=== PATIENT | male | born 1940 | race Caucasian/White ===

== ENCOUNTER 2017-12-17 04:24 | Inpatient (IN) | payer MEDICARE ==
[~2017-12-17] VITALS: Ht 182.9 cm; Wt 93.5 kg
[2017-12-17] VITALS (13 sets, daily range): BP systolic 115–145; BP diastolic 53–105; PULSE 68–92; RESP 16–28; TEMP 97.8–98.6; O2SAT 94–98
--- NOTE | 2017-12-17 05:34 | PD ---
HPI Chief Complaint: Altered Mental Status Time Seen by Provider: 05:13 Travel History International Travel<30 days: No Contact w/Intl Traveler<30days: No Traveled to known affect area: No History of Present Illness HPI The patient is a 77 year old male who presents to the [facility] emergency department with a history of reportedly having a headache in the back of his head and neck that began on Sunday. The patient reports that this was associated with left shoulder pain. 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 He reports that he went to the emergency department in [place] and was admitted to the hospital. He reports that on Sunday he underwent a cardiac catheterization and no stents needed to be placed. The patient developed confusion in the hospital and was admitted overnight. They thought that this was related to sedation from the cardiac catheterization procedure according to his daughter at the bedside. He reports that he does take an aspirin daily. He denies taking any other blood thinners. He reports having a history of an irregular heartbeat, however he is unsure whether this is related to atrial fibrillation. He reports that his headache is now 10 out of 10 in severity he reports that he is having difficulty finding words. He reports that he feels confused. He is having difficulty finding words. He reports that the symptoms began on Sunday. He denies having any focal weakness. He denies having any vision changes. The patient reports a history of hypertension, hyperlipidemia, diabetes mellitus, coronary artery disease. He denies having any known recent fevers, cough or congestion, shortness of breath, abdominal pain, vomiting, diarrhea, urinary symptoms, or other neurologic symptoms. [facility] Past Medical History Narrative Medical The patient's past medical history is significant for hypertension, hyperlipidemia, diabetes mellitus, history of an irregular heartbeat, coronary artery disease. Medical History: Unable to Obtain Cardiovascular Problems: Yes Past Surgical History Narrative Surgical The patient's past surgical history is significant for quadruple bypass, left knee replacement Social History Alcohol Use: Yes (OCC) Tobacco Use: No Substance Use: No Allergies-Medications (Allergen,Severity, Reaction): Coded Allergies: No Known Allergies (Unverified , 12/17/17) Reported Meds & Prescriptions Reported Meds & Active Scripts Active Reported Norvasc (Amlodipine Besylate) 5 Mg Tab 5 Mg PO DAILY Carvedilol 3.125 Mg Tab 3.125 Mg PO BID Aspirin 81 Mg Chew 81 Mg PO DAILY Crestor (Rosuvastatin Calcium) 40 Mg Tab 40 Mg PO DAILY Pantoprazole (Pantoprazole Sodium) 40 Mg Tab 40 Mg PO DAILY Lisinopril 40 Mg Tab 40 Mg PO DAILY Metformin (Metformin HCl) 500 Mg Tab 500 Mg PO BIDPC Review of Systems Except as stated in HPI: all other systems reviewed are Neg General / Constitutional: No: Fever Eyes: No: Visual changes HENT: Positive: Headaches, Neck Pain, No: Neck Stiffness Cardiovascular: No: Chest Pain or Discomfort, Dyspnea on exertion Respiratory: No: Shortness of Breath Gastrointestinal: No: Nausea, Vomiting, Abdominal Pain Genitourinary: No: Dysuria Musculoskeletal: No: Pain Skin: No Rash Neurologic: Positive: Headache, Change in Mentation, No: Weakness, Focal Abnormalities, Slurred Speech, Sensory Disturbance Psychiatric: No: Depression Endocrine: No: Polydipsia Hematologic/Lymphatic: No: Easy Bruising Physical Exam Narrative General: The patient is a well-developed well-nourished male, uncomfortable appearing on examination reporting a headache all throughout his head with posterior neck pain. Head and Neck exam: Head is normocephalic atraumatic. Eyes: EOMI, pupils are equal round and reactive to light. Nose: Midline septum with pink mucous membranes Mouth: Dentition unremarkable. Moist mucus membranes. Posterior oropharynx is not erythematous. No tonsillar hypertrophy. Uvula midline. Airway patent. Neck: No palpable lymphadenopathy. No nuchal rigidity. No thyromegaly. Cardiovascular: Irregularly irregular with a rate in the 140s without murmurs, gallops, or rubs. The patient is noted to be in atrial fibrillation on the monitor. Lungs: Clear to auscultation bilaterally. No wheezes, rhonchi, or rales. Abdomen: Soft, without tenderness to palpation in all 4 quadrants of the abdomen. No guarding, rebound, or rigidity. Normal bowel sounds are audible. No tenderness on palpation of McBurney's point. Extremities: No clubbing, cyanosis, or edema. 2+ pulses in all 4 extremities. No calf tenderness on palpation. Back: No spinous process tenderness to palpation. No costovertebral angle tenderness to palpation. Neurologic Exam: The patient has no facial asymmetry with cranial nerves II through XII intact. The patient has a mild expressive aphasia noted. The patient has 4/5 strength in the left upper extremity, 5/5 strength in the right upper and bilateral lower extremities with intact sensation over all dermatomes. The patient is slow to answer questions, however he is able to answer questions with time. The patient has no slurred speech. Skin Exam: No rash noted. Intact skin that is warm and dry. Data Data Last Documented VS Vital Signs Date Time Temp Pulse Resp B/P (MAP) Pulse Ox O2 Delivery O2 Flow Rate FiO2 12/17/17 07:30 97.8 78 16 126/78 (94) 97 Nasal Cannula 3.00 Orders Orders Electrocardiogram (12/17/17 05:15) Complete Blood Count With Diff (12/17/17 05:15) Comprehensive Metabolic Panel (12/17/17 05:15) Creatine Kinase (Cpk) (12/17/17 05:15) Ckmb (Isoenzyme) Profile (12/17/17 05:15) Troponin I (12/17/17 05:15) B-Type Natriuretic Peptide (12/17/17 05:15) Prothrombin Time / Inr (Pt) (12/17/17 05:15) Act Partial Throm Time (Ptt) (12/17/17 05:15) Lipase (12/17/17 05:15) Urinalysis - C+S If Indicated (12/17/17 05:15) Cath For Specimen (12/17/17 05:15) Magnesium (Mg) (12/17/17 05:15) Ammonia (12/17/17 05:15) Chest, Single Ap (12/17/17 05:15) Ct Brain W/O Iv Contrast(Rout) (12/17/17 05:15) Iv Access Insert/Monitor (12/17/17 05:15) Ecg Monitoring (12/17/17 05:15) Oximetry (12/17/17 05:15) Drug Screen, Random Urine (12/17/17 05:15) Alcohol (Ethanol) (12/17/17 05:15) Diltiazem Inj (Cardizem Inj) (12/17/17 05:45) Blood Pressure (12/17/17 05:38) Diltiazem Inj (Cardizem Inj) (12/17/17 05:45) Sodium Chloride 0.9% Flush (Ns Flush) (12/17/17 05:45) CKMB (12/17/17 05:55) CKMB% (12/17/17 05:55) Mra Carotids W Contrast (12/17/17 ) Fentanyl Inj (Fentanyl Inj) (12/17/17 06:45) Diltiazem Inj (Cardizem Inj) (12/17/17 06:45) [place] (12/17/17 06:40) Ondansetron Inj (Zofran Inj) (12/17/17 06:45) Aspirin (Aspirin) (12/17/17 06:45) Sodium Chlor 0.9% 1000 Ml Inj (Ns 1000 M (12/17/17 06:45) Mri Brain W&W/O Contrast (12/17/17 06:42) Fentanyl Inj (Fentanyl Inj) (12/17/17 06:49) Mra Brain W/O Contrast (Cow) (12/17/17 06:33) Echo 2d Comp With Doppler (12/17/17 ) Consult Cardiology (12/17/17 ) Carvedilol (Coreg) (12/17/17 09:00) Atorvastatin (Lipitor) (12/17/17 21:00) Aspirin Chew (Aspirin Chew) (12/17/17 09:00) Admit Order (Ed Use Only) (12/17/17 07:31) Consult Neurology (12/17/17 ) Labs Laboratory Tests Test 12/17/17 05:55 White Blood Count 9.0 TH/MM3 Red Blood Count 4.21 MIL/MM3 Hemoglobin 13.4 GM/DL Hematocrit 38.7 % Mean Corpuscular Volume 92.0 FL Mean Corpuscular Hemoglobin 31.8 PG Mean Corpuscular Hemoglobin Concent 34.6 % Red Cell Distribution Width 12.7 % Platelet Count 176 TH/MM3 Mean Platelet Volume 8.8 FL Neutrophils (%) (Auto) 74.6 % Lymphocytes (%) (Auto) 15.7 % Monocytes (%) (Auto) 9.1 % Eosinophils (%) (Auto) 0.5 % Basophils (%) (Auto) 0.1 % Neutrophils # (Auto) 6.7 TH/MM3 Lymphocytes # (Auto) 1.4 TH/MM3 Monocytes # (Auto) 0.8 TH/MM3 Eosinophils # (Auto) 0.0 TH/MM3 Basophils # (Auto) 0.0 TH/MM3 CBC Comment DIFF FINAL Differential Comment Prothrombin Time 10.7 SEC Prothromb Time International Ratio 1.1 RATIO Activated Partial Thromboplast Time 25.0 SEC Urine Color YELLOW Urine Turbidity CLEAR Urine pH 7.0 Urine Specific [place] 1.018 Urine Protein 100 mg/dL Urine Glucose (UA) NEG mg/dL Urine Ketones 40 mg/dL Urine Occult Blood TRACE Urine Nitrite NEG Urine Bilirubin NEG Urine Urobilinogen LESS THAN 2.0 MG/DL Urine Leukocyte Esterase NEG Urine WBC 1 /hpf Urine Mucus FEW /lpf Microscopic Urinalysis Comment CULT NOT INDICATED Blood Urea Nitrogen 13 MG/DL Creatinine 1.08 MG/DL Random Glucose 132 MG/DL Total Protein 7.2 GM/DL Albumin 3.7 GM/DL Calcium Level 8.6 MG/DL Magnesium Level 1.8 MG/DL Alkaline Phosphatase 43 U/L Aspartate Amino Transf (AST/SGOT) 38 U/L Alanine Aminotransferase (ALT/SGPT) 28 U/L Total Bilirubin 0.8 MG/DL Sodium Level 135 MEQ/L Potassium Level 3.6 MEQ/L Chloride Level 101 MEQ/L Carbon Dioxide Level 24.9 MEQ/L Anion Gap 9 MEQ/L Estimat Glomerular Filtration Rate 67 ML/MIN Ammonia 28 MCMOL/L Total Creatine Kinase 180 U/L Creatine Kinase MB 6.4 NG/ML Troponin I 5.62 NG/ML B-Type Natriuretic Peptide 116 PG/ML Lipase 85 U/L Urine Opiates Screen NEG Urine Barbiturates Screen NEG Urine Amphetamines Screen NEG Urine Benzodiazepines Screen POS Urine Cocaine Screen NEG Urine Cannabinoids Screen NEG Ethyl Alcohol Level LESS THAN 3 MG/DL MDM Medical Decision Making Medical Screen Exam Complete: Yes Emergency Medical Condition: Yes Medical Record Reviewed: Yes Interpretation(s) Last Impressions Brain MRI 12/17/17 0642 Signed Impressions: Service Date/Time: Sunday, December 17, 2017 09:23 - CONCLUSION: 1. The abnormality on CT corresponds to a large area of acute to subacute infarction. 2. No evidence of underlying mass or hemorrhage. Guanakito Thomas MD Head Magnetic Resonance Angiography 12/17/17 0633 Signed Impressions: Service Date/Time: Sunday, December 17, 2017 09:23 - CONCLUSION: Occluded branches of left SCIENTIFIC TECHNICAL WRITER. Hypoplastic left A1. Mario Robertson MD Head CT 12/17/17 0515 Signed Impressions: Service Date/Time: Sunday, December 17, 2017 05:35 - CONCLUSION: 1. Prominent area of low density throughout the left posterior temporal/occipital lobe concerning for infarct versus underlying mass/edema. Contrast MRI recommended. 2. Nonspecific white matter changes. All Bueno MD Chest X-Ray 12/17/1715 Signed Impressions: Service Date/Time: Sunday, December 17, 2017 05:26 - CONCLUSION: 1. Elevation left hemidiaphragm. 2. Status post CABG. All Bueno MD Neck Magnetic Resonance Angiography 12/17/17 0000 Signed Impressions: Service Date/Time: Sunday, December 17, 2017 09:23 - CONCLUSION: No evidence of carotid stenosis Mario Robertson MD Differential Diagnosis Ischemic stroke, versus intracranial mass, versus delirium, versus encephalopathy Narrative Course During the course of the patient's emergency department visit, the patient's history, examination, and differential diagnosis were reviewed with the patient. The patient was placed on a painter and body work with oximetry and frequent blood pressure monitoring. The patient had IV access obtained and blood work sent for analysis. The patient's records from [place] will be obtained. The patient had a EKG done on arrival that shows A. fib with RVR heart rate of 140, QRS duration 104 ms, QTC [address] segments in leads V2, V3, V4, V5. No acute ST segment elevation. The patient was initially provided Cardizem 20 mg IV followed by Cardizem drip. The patient was given fentanyl for his headache, Zofran for nausea. A CT scan of the brain showed prominent area of low density throughout the left posterior temporal occipital lobe concerning for infarct versus underlying mass/ edema, contrast MRI is recommended. Nonspecific white matter changes are noted.The patient's case including history, pertinent physical examination findings, and laboratory studies were discussed with Dr. Cuevas at approximately 6:30 AM regarding the patient's CT scan findings. He did recommend the patient undergo an MR a of the carotids with and without contrast, MRA of the [place] of the brain, MRI of the brain with and without contrast. He reported that he did not recommend anticoagulation at this point due to the large area of ischemia and the risk for hemorrhagic conversion. The patient was given aspirin 325 mg p.o. 1. The patient was placed with the head of the bed flat, normal saline at 70 mL/h was ordered The patient's laboratory studies were reviewed and remarkable for a white count of 9.0, hemoglobin 13.4, platelets 176 with 74.6 neutrophils. CMP is remarkable for a sodium of 135, glucose 132, AST 38, alk phos 43, CPK 180, troponin I 5.62, BNP 116, lipase 85. PT PTT within normal limits. Urine drug screen is positive for benzodiazepines, alcohol level is less than 3. Urinalysis shows 100 protein 40 ketones trace occult blood, otherwise unremarkable. Radiology studies were reviewed and remarkable for a CT scan of the brain that showed a prominent area of low density throughout the left posterior temporal occipital lobes concerning for infarct versus underlying mass/edema. The patient is out of the timeframe for consideration of thrombolytics. I did speak to the neurologist as discussed above. Also spoke with the intensive care physician who did agree to admit the patient for continued evaluation and treatment at this time. The patient's results were discussed with the patient, including the plan of care. I explained that further testing and/ or monitoring is indicated based on the patient's history, examination, and/ or laboratory findings. Therefore, I recommended admission for additional evaluation. The patient expressed understanding and was agreeable with this plan. The patient was admitted to the hospital in critical condition and sent to a bed under the care of the cinder pitman service. Critical Care Narrative Aggregate critical care time was 41 minutes. Time to perform other separately billable procedures was not included in the critical care time. My time did not include minutes spent treating any other patients simultaneously or on activities that did not directly contribute to the patient's treatment. The services I provided to this patient were to treat and/or prevent clinically significant deterioration that could result in: Progression of neurologic deficit, versus respiratory failure from cerebral edema I provided critical care services requiring my management, as noted below: Chart data review, documentation time, medication orders and management, vital sign assessments/reviewing monitor data, ordering and reviewing lab tests, ordering and interpreting/reviewing x-rays and diagnostic studies, care of the patient and discussion of the patient with the admitting physicians. Physician Communication Physician Communication The patient's case including history, pertinent physical examination findings, and laboratory studies were discussed with Dr. Cuevas at approximately 6:30 AM regarding the patient's CT scan findings. He did recommend the patient undergo an MR a of the carotids with and without contrast, MRA of the [place] of the brain, MRI of the brain without contrast. He reported that he did not recommend anticoagulation at this point due to the large area of ischemia and the risk for hemorrhagic conversion. The patient's case including history, pertinent physical examination findings, and laboratory studies were discussed with Dr. Martin. It was agreed that the patient would be admitted to the the cinder pitman service. Diagnosis Primary Impression: Ischemic stroke Additional Impressions: Expressive aphasia Atrial fibrillation with RVR Elevated troponin Admitting Information Admitting Physician Requests: Admit Rose Mary Robb MD Dec 17, 2017 05:34
--- NOTE | 2017-12-17 05:42 | RADRPT ---
EXAM DATE/TIME: 12/17/2017 05:26 [facility] COMPARISON: No previous studies available for comparison. INDICATIONS : Altered mental status for three days. MEDICAL HISTORY : None. SURGICAL HISTORY : None. ENCOUNTER: Initial ACUITY: 3 days PAIN SCORE: 0/10 LOCATION: Bilateral chest FINDINGS: A single view of the chest demonstrates clear lungs without evidence of mass, infiltrate or effusion. Elevation left hemidiaphragm. Status post CABG. The cardiomediastinal contours are unremarkable. Os seous structures are intact. CONCLUSION: 1. Elevation left hemidiaphragm. 2. Status post CABG. All Bueno MD on December 17, 2017 at 5:40 Board Certified Radiologist. This report was verified electronically.
[2017-12-17] MEDS ORDERED: SODIUM CHLORIDE 0.9% FLUSH 10 ML FLUSH IV FLUSH PRN ×2 (05:45→16:00)
[2017-12-17] MEDS ORDERED: DILTIAZEM HCL 25 MG/5 ML VIAL IV ONE (05:45)
--- NOTE | 2017-12-17 06:09 | RADRPT ---
EXAM DATE/TIME: 12/17/2017 05:35 [facility] COMPARISON: No previous studies available for comparison. INDICATIONS : Headache X 3 days; altered mental status today. RADIATION DOSE: 56.35 CTDIvol (mGy) MEDICAL HISTORY : Cardiovascular disease. SURGICAL HISTORY : None. ENCOUNTER: Initial ACUITY: 3 days PAIN SCALE: 10/10 LOCATION: cranial TECHNIQUE: Multiple contiguous axial images were obtained of the head. Using automated exposure control and adj ustment of the mA and/or kV according to patient size, radiation dose was kept as low as reasonably a chievable to obtain optimal diagnostic quality images. DICOM format image data is available electro nically for review and comparison. FINDINGS: CEREBRUM: Prominent area of low attenuation in the left occipital/temporal lobe. Areas of low-attenuation throu ghout the white matter. The ventricles are normal for age. No evidence of midline shift, mass lesion , hemorrhage or acute infarction. No extra-axial fluid collections are seen. POSTERIOR FOSSA: The cerebellum and brainstem are intact. The 4th ventricle is midline. The cerebellopontine angle i s unremarkable. EXTRACRANIAL: The visualized portion of the orbits is intact. SKULL: The calvaria is intact. No evidence of skull fracture. CONCLUSION: 1. Prominent area of low density throughout the left posterior temporal/occipital lobe concerning for infarct versus underlying mass/edema. Contrast MRI recommended. 2. Nonspecific white matter changes. All Bueno MD on December 17, 2017 at 6:04 Board Certified Radiologist. This report was verified electronically.
[2017-12-17 06:13] LABS: BILIRUBIN, URINE NEG (NEG); BLOOD, URINE TRACE (NEG); GLUCOSE,URINE NEG (NEG); KETONE, URINE 40 mg/dL (NEG); MUCUS URINE FEW /lpf (OCC); NITRITE,URINE NEG (NEG); URINE COLOR YELLOW (YELLW/STRAW); URINE LEUKOCYTE ESTERASE NEG (NEG)
[2017-12-17 06:19] LABS: INTERNATIONAL NORMALIZED RATIO 1.1 RATIO; PROTHROMBIN TIME - PATIENT 10.7 SEC (9.8-11.6)
[2017-12-17 06:28] LABS: ALBUMIN 3.7 GM/DL (3.4-5.0); ALT (GPT) 28 U/L (12-78); AST (GOT) 38 U/L (15-37); BICARBONATE 24.9 MEQ/L (21.0-32.0); BLOOD UREA NITROGEN 13 MG/DL (7-18); CALCIUM 8.6 MG/DL (8.5-10.1); CHLORIDE 101 MEQ/L (98-107); CREATININE 1.08 MG/DL (0.60-1.30); GLOMERULAR FILTRATION RATE 67 ML/MIN (>89); GLUCOSE,RANDOM 132 MG/DL (74-106); MAGNESIUM 1.8 MG/DL (1.5-2.5); SODIUM (NA) 135 MEQ/L (136-145)
[2017-12-17 06:31] LABS: ALKALINE PHOSPHATASE 43 U/L (45-117); TOTAL BILIRUBIN ADULT 0.8 MG/DL (0.2-1.0); TOTAL PROTEIN 7.2 GM/DL (6.4-8.2)
[2017-12-17 06:34] LABS: TROPONIN I 5.62 NG/ML (0.02-0.05)
[2017-12-17 06:42] LABS: AUTOMATED NEUTROPHIL # 6.7 TH/MM3 (1.8-7.7); BASOPHIL % 0.1 % (0.0-2.0); EOSINOPHIL % 0.5 % (0.0-4.0); HEMATOCRIT 38.7 % (39.0-51.0); HEMOGLOBIN 13.4 GM/DL (13.0-17.0); LYMPH % 15.7 % (9.0-44.0); LYMPHOCYTE # 1.4 TH/MM3 (1.0-4.8); MEAN CORPUSCULAR HEMOGLOBIN 31.8 PG (27.0-34.0); MEAN CORPUSCULAR HGB CONC 34.6 % (32.0-36.0); MEAN PLATELET VOLUME 8.8 FL (7.0-11.0); MONO % 9.1 % (0.0-8.0); MONOCYTE # 0.8 TH/MM3 (0-0.9); NEUT % 74.6 % (16.0-70.0); PLATELET COUNT 176 TH/MM3 (150-450); RED BLOOD COUNT 4.21 MIL/MM3 (4.50-5.90); RED CELL DISTRIBUTION WIDTH 12.7 % (11.6-17.2)
[2017-12-17] MEDS ORDERED: fentaNYL CITRATE 250 MCG/5 ML AMP IV PUSH ONE (06:45)
[2017-12-17] MEDS ORDERED: ASPIRIN 325 MG TAB PO ONE (06:45)
[2017-12-17] MEDS ORDERED: DILTIAZEM HCL 50 MG/10 ML VIAL IV ONE (06:45)
[2017-12-17] MEDS ORDERED: SODIUM CHLOR 0.9% 1000 ML INJ 1,000 ML IV SCH ×2 (06:45→07:24)
[2017-12-17] MEDS ORDERED: ONDANSETRON HCL 4 MG/2 ML VIAL IV PUSH ONE (06:45)
[2017-12-17] MEDS ORDERED: fentaNYL CITRATE 250 MCG/5 ML AMP ONE (06:49)
[2017-12-17] MEDS: DILTIAZEM INJ 125 MG in SODIUM CHLORIDE 0.9% INJ 100 ML IV PRN ×2 (06:55→20:41)
[2017-12-17] MEDS ORDERED: BISACODYL 10 MG SUPP RECTAL PRN (07:30)
[2017-12-17] MEDS ORDERED: SENNOSIDES 8.6 MG TAB PO PRN (07:30)
[2017-12-17] MEDS ORDERED: RESP: ALBUTEROL 2.5 MG/IPRATROPIUM 0.5 MG NEB (PRN) INH (07:30)
[2017-12-17] MEDS ORDERED: LACTULOSE SYRUP 20 GM/30 ML CUP PO PRN (07:30)
[2017-12-17] MEDS ORDERED: MAGNESIUM HYDROXIDE SUSP 30 ML CUP PO PRN ×2 (07:30→19:45)
[2017-12-17] MEDS ORDERED: CHLORHEXIDINE GLUCONATE 2 % 1 PACK (2 CLOTHS) TOP PRN (07:30)
[2017-12-17] MEDS ORDERED: MISCELLANEOUS NURSING INFORMATION XX SCH (07:30)
[2017-12-17] MEDS ORDERED: POTASSIUM CHLORIDE 25 MEQ EFFERVESCENT TAB PO PRN (07:45)
[2017-12-17] MEDS ORDERED: MAGNESIUM SULFATE INJ 4 GM in SODIUM CHLORIDE 0.9% INJ 92 ML IV PRN (07:45)
[2017-12-17] MEDS ORDERED: POTASSIUM CHLOR 20 MEQ PREMIX 100 ML IV PRN ×2 (07:45)
[2017-12-17] MEDS ORDERED: MAGNESIUM OXIDE 400 MG TAB PO PRN (07:45)
[2017-12-17] MEDS ORDERED: POTASSIUM PHOSPHATE MONOBASIC 500 MG TAB PO PRN (07:45)
[2017-12-17] MEDS ORDERED: MAGNESIUM SULFATE INJ 2 GM in SODIUM CHLORIDE 0.9% INJ 96 ML IV PRN (07:45)
[2017-12-17] MEDS ORDERED: POTASSIUM CHLOR 40 MEQ PREMIX 100 ML IV PRN ×2 (07:45)
[2017-12-17] MEDS ORDERED: POTASSIUM PHOSPHATE INJ 30 MMOL in SODIUM CHLOR 0.9% 250 ML INJ 250 ML IV PRN (07:45)
[2017-12-17] MEDS ORDERED: POTASSIUM PHOSPHATE MONOBASIC 500 MG TAB PO/TUBE PRN (07:45)
[2017-12-17] MEDS ORDERED: SODIUM PHOSPHATE INJ 30 MMOL in SODIUM CHLOR 0.9% 250 ML INJ 240 ML IV PRN (07:45)
[2017-12-17] MEDS ORDERED: MAGNESIUM SULFATE 1 GM PREMIX 100 ML IV ONE (07:45)
[2017-12-17] MEDS: ACETAMINOPHEN 325 MG TAB PO PRN ×2 (08:22→18:02)
[2017-12-17] MEDS ORDERED: CARV3.12 PO (08:27)
[2017-12-17] MEDS ORDERED: LISI40TA PO (08:27)
[2017-12-17] MEDS ORDERED: ASPI-516 PO (08:27)
[2017-12-17] MEDS ORDERED: PANT40TA3 PO (08:27)
[2017-12-17] MEDS ORDERED: AMLO5 PO (08:27)
[2017-12-17] MEDS ORDERED: METF500T PO (08:27)
[2017-12-17] MEDS ORDERED: ROSU40 PO (08:27)
[2017-12-17] MEDS ORDERED: LORazepam 2 MG/ML VIAL IV PUSH ONE (09:15)
--- NOTE | 2017-12-17 10:03 | RADRPT ---
EXAM DATE/TIME: 12/17/2017 09:23 [facility] COMPARISON: CT BRAIN W/O CONTRAST, December 17, 2017, 5:35. INDICATIONS : CVA. MEDICAL HISTORY : Diabetes mellitus type 2. Hypertension. SURGICAL HISTORY : CABG ENCOUNTER: Initial ACUITY: 1 day PAIN SCORE: 5/10 LOCATION: head Please note a normal MRA of the brain does not entirely exclude the possibility of a small aneurysm, nor the possibility of distal intracranial vessel disease. TECHNIQUE: 3D time of flight MRA was performed. Source images, multiplanar STS MIP, and 3D volume MIP reconstru ctions were reviewed. FINDINGS: There is absent or diminished flow related enhancement in portions of distal left AIRPLANE FUELER. The A1 segment of left anterior cerebral artery is hypoplastic. The [place] vessels are otherwise intact a nd unremarkable. There is no evidence of aneurysm or vascular malformation. CONCLUSION: Occluded branches of left AIRPLANE FUELER. Hypoplastic left A1. Mario Robertson MD on December 17, 2017 at 9:57 Board Certified Radiologist. This report was verified electronically.
[2017-12-17] MEDS: DOCUSATE SODIUM 50 MG/SENNA 8.6 MG TAB PO SCH ×2 (10:09→20:34)
[2017-12-17] MEDS: CARVEDILOL 3.125 MG TAB PO SCH ×2 (10:09→20:34)
[2017-12-17] MEDS: ASPIRIN 81 MG CHEW TAB CHEW SCH (10:09)
[2017-12-17] MEDS: FAMOTIDINE 20 MG/2 ML VIAL IV PUSH SCH ×2 (10:09→20:33)
--- NOTE | 2017-12-17 10:11 | RADRPT ---
EXAM DATE/TIME: 12/17/2017 09:23 [facility] COMPARISON: CT BRAIN W/O CONTRAST, December 17, 2017, 5:35. INDICATIONS : Patient with headache and altered mental status. Abnormal head CT demonstrating abnormal low den sity in the posterior temporal occipital lobes concern for infarct versus mass. CONTRAST: 20 cc Omniscan (gadodiamide) IV MEDICAL HISTORY : Diabetes mellitus type 2. Hypertension. SURGICAL HISTORY : CABG ENCOUNTER: Initial ACUITY: 1 day PAIN SCORE: 5/10 LOCATION: Head TECHNIQUE: Multiplanar, multisequence MRI of the brain was performed both prior to and following the administrat ion of paramagnetic contrast. FINDINGS: A large area of abnormal signal is present involving the inferior posterior temporal lobe and in ferior parietal lobe as well as the left occipital lobe. This demonstrates significant restricted dif fusion on the echoplanar weighted images and the area measures up to approximately 9.4 x 3.9 cm in gr eatest diameter. There is surrounding edema and mild mass effect on the occipital horn of the left la teral ventricle. There is no midline shift. There is a small area of restricted diffusion also noted in the right cerebellar hemisphere and a tiny pinpoint of restricted diffusion along the upper cerebe llum. After contrast administration there is mild streaky enhancement throughout this region with no underlying mass. There is mild to moderate diffuse atrophic change with sulcal and ventricular promin ence. Extensive chronic small vessel ischemic changes are noted with increased signal on the flair we ighted images in the deep white matter and centrum semiovale. There is no evidence of hemorrhage. CONCLUSION: 1. The abnormality on CT corresponds to a large area of acute to subacute infarction. 2. No evidence of underlying mass or hemorrhage. Guanakito Thomas MD on December 17, 2017 at 10:00 Board Certified Radiologist. This report was verified electronically.
--- NOTE | 2017-12-17 10:28 | RADRPT ---
EXAM DATE/TIME: 12/17/2017 09:23 [facility] COMPARISON: MRI BRAIN W & W/O CONTRAST, December 17, 2017, 9:23. INDICATIONS : Stroke. CONTRAST: 20 cc Omniscan (gadodiamide) IV MEDICAL HISTORY : Diabetes mellitus type 2. Hypertension. SURGICAL HISTORY : CABG ENCOUNTER: Initial ACUITY: 1 day PAIN SCORE: 4/10 LOCATION: neck Percent stenosis is calculated using the diameter of the stenotic region over the diameter of the nor mal distal internal carotid artery. TECHNIQUE: Bolus infused MRA of the extracranial circulation was performed using a neurovascular coil. Post pro cessing was performed including rotating subvolume maximum intensity projections of each carotid rebekah ry, rotating full volume maximum intensity projections of both carotid arteries, sagittal and coronal sliding thin slab reformations of each carotid artery, and left oblique sliding thin slab reformatio n through the aortic arch to include the origin of the arch branch vessels. FINDINGS: AORTIC ARCH: There is a three vessel origin of the great vessels from the aorta. No evidence of ostial narrowing. RIGHT CAROTID: The common carotid artery is intact. The carotid bulb has a normal configuration without ulceration or narrowing. The internal carotid artery is moderately tortuous. The lumen is smooth without stenos is. The external carotid artery is intact. LEFT CAROTID: The common carotid artery is intact. The carotid bulb has a normal configuration without ulceration or narrowing. The internal carotid artery is moderately tortuous. The lumen is smooth without stenos is. The external carotid artery is intact. VERTEBRALS: The vertebral arteries have a symmetric diameter. No stenotic lesions are seen. CONCLUSION: No evidence of carotid stenosis Mario Robertson MD on December 17, 2017 at 10:22 Board Certified Radiologist. This report was verified electronically.
[2017-12-17] MEDS ORDERED: GADODIAMIDE PF 287 MG/ML 20 ML VIAL (for RAD MRI) IV PUSH ONE (10:38)
[2017-12-17] MEDS: RESP: ALBUTEROL 2.5 MG/IPRATROPIUM 0.5 MG NEB (SCH) INH ×2 (11:06→22:45)
[2017-12-17 15:21] LABS: PHOSPHORUS 2.7 MG/DL (2.5-4.9)
--- NOTE | 2017-12-17 15:34 | HHI.HP ---
HPI Service Critical Care Medicine Primary Care Physician Unknown Admission Diagnosis Ischemic stroke with expressive aphasia, afib with rvr, elevated tro Diagnosis: Travel History International Travel<30 Days: No Contact w/Intl Traveler <30 Da: No Traveled to Known Affected Are: No History of Present Illness HPI The patient is a 77 year old male who presents to the [facility] emergency department with a history of reportedly having a headache in the back of his head and neck that began on Sunday. The patient reports that this was associated with left shoulder pain. 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 He reports that he went to the emergency department in [place] and was admitted to the hospital. He reports that on Sunday he underwent a cardiac catheterization and no stents needed to be placed. The patient developed confusion in the hospital and was admitted overnight. They thought that this was related to sedation from the cardiac catheterization procedure according to his daughter at the bedside. He reports that he does take an aspirin daily. He denies taking any other blood thinners. He reports having a history of an irregular heartbeat, however he is unsure whether this is related to atrial fibrillation. Patient was discharged home on 12/16 from [facility]. He text in his daughter this morning that he was confused and patient was brought over to [facility] ER. He was complaining of significant headache at that time as well 10 out of 10 in intensity with some confusion and difficulty finding words which reportedly began on 07/17 following cardiac catheterization. He denies having any focal weakness. He denies having any vision changes. He denies having any known recent fevers, cough or congestion, shortness of breath, abdominal pain, vomiting, diarrhea, urinary symptoms, or other neurologic symptoms. Patient underwent head CT which showed ischemic infarct in the region of the left occipital lobe. He was accepted for admission by critical care medicine service. Neurology and cardiology were consulted as well and patient underwent an MRI MRA brain which showed a large infarct in the left occipital/temporal parietal region with cerebral edema. When I evaluated the patient in the ER he was laying in the ER stretcher drowsy but easily arousable and following commands though was disoriented and had difficulty with finding words. He could not tell me the year or month or date. He knew he lived in [place] however could not tell me where he was currently. He could name his daughter. History was obtained by reviewing records and discussion with patient as well as his daughter was at the bedside. [facility] Past Medical History Narrative Medical The patient's past medical history is significant for hypertension, hyperlipidemia, diabetes mellitus, history of an irregular heartbeat, coronary artery disease. Medical History: Unable to Obtain Cardiovascular Problems: Yes Past Surgical History Narrative Surgical The patient's past surgical history is significant for quadruple bypass, left knee replacement Social History Alcohol Use: Yes (OCC) Tobacco Use: No Substance Use: No Allergies-Medications (Allergen,Severity, Reaction): Coded Allergies: No Known Allergies (Unverified , 12/17/17) Reported Meds & Prescriptions Reported Meds & Active Scripts Active Active Prescriptions or Reported Medications Unobtainable Review of Systems Except as stated in HPI: all other systems reviewed are Neg General / Constitutional: No: Fever Eyes: No: Visual changes HENT: Positive: Headaches, Neck Pain, No: Neck Stiffness Cardiovascular: No: Chest Pain or Discomfort, Dyspnea on exertion Respiratory: No: Shortness of Breath Gastrointestinal: No: Nausea, Vomiting, Abdominal Pain Genitourinary: No: Dysuria Musculoskeletal: No: Pain Skin: No Rash Neurologic: Positive: Headache, Change in Mentation, No: Weakness, Focal Abnormalities, Slurred Speech, Sensory Disturbance Psychiatric: No: Depression Endocrine: No: Polydipsia Hematologic/Lymphatic: No: Easy Bruising Past Family Social History Allergies: Coded Allergies: No Known Allergies (Unverified , 12/17/17) Physical Exam Vital Signs Vital Signs Date Time Temp Pulse Resp B/P (MAP) Pulse Ox O2 Delivery O2 Flow Rate FiO2 12/17/17 13:16 97.8 81 18 133/87 (102) 97 Nasal Cannula 3.00 12/17/17 12:00 97.8 84 20 129/73 (91) 98 Nasal Cannula 3.00 12/17/17 11:08 97 Nasal Cannula 2.00 12/17/17 10:48 98.0 89 20 129/73 (91) 97 Nasal Cannula 3.00 12/17/17 09:22 16 12/17/17 07:54 16 12/17/17 07:30 97.8 78 16 126/78 (94) 97 Nasal Cannula 3.00 12/17/17 07:30 18 (94) 98 Nasal Cannula 3.00 12/17/17 07:30 78 18 98 Nasal Cannula 3.00 12/17/17 06:55 104 57/112 12/17/17 04:45 98.6 82 16 140/105 (117) 98 Physical Exam General: The patient is a well-developed well-nourished male, laying in ER stretcher not in any acute distress. Head and Neck exam: Head is normocephalic atraumatic. Eyes: EOMI, pupils are equal round and reactive to light. Nose: Midline septum with pink mucous membranes Mouth: Dentition unremarkable. Moist mucus membranes. Posterior oropharynx is not erythematous. No tonsillar hypertrophy. Uvula midline. Airway patent. Neck: No palpable lymphadenopathy. No nuchal rigidity. No thyromegaly. Cardiovascular: Irregularly irregular without murmurs, gallops, or rubs. The patient is noted to be in atrial fibrillation on the monitor. Lungs: Clear to auscultation bilaterally. No wheezes, rhonchi, or rales. Abdomen: Soft, without tenderness to palpation in all 4 quadrants of the abdomen. No guarding, rebound, or rigidity. Normal bowel sounds are audible. Extremities: No clubbing, cyanosis, or edema. 2+ pulses in all 4 extremities. No calf tenderness on palpation. Back: No spinous process tenderness to palpation. No costovertebral angle tenderness to palpation. Neurologic Exam: Awake and alert. Disoriented to time place however recognizes daughter and can give me his name. Pupils 3mm bilaterally reactive. Moving all 4 extremities with grade 5 power, deep tendon reflexes 2+ bilaterally, plantars equivocal Skin Exam: No rash noted. Intact skin that is warm and dry. Laboratory Laboratory Tests Test 12/17/17 05:55 12/17/17 11:52 White Blood Count 9.0 Red Blood Count 4.21 Hemoglobin 13.4 Hematocrit 38.7 Mean Corpuscular Volume 92.0 Mean Corpuscular Hemoglobin 31.8 Mean Corpuscular Hemoglobin Concent 34.6 Red Cell Distribution Width 12.7 Platelet Count 176 Mean Platelet Volume 8.8 Neutrophils (%) (Auto) 74.6 Lymphocytes (%) (Auto) 15.7 Monocytes (%) (Auto) 9.1 Eosinophils (%) (Auto) 0.5 Basophils (%) (Auto) 0.1 Neutrophils # (Auto) 6.7 Lymphocytes # (Auto) 1.4 Monocytes # (Auto) 0.8 Eosinophils # (Auto) 0.0 Basophils # (Auto) 0.0 CBC Comment DIFF FINAL Differential Comment Prothrombin Time 10.7 Prothromb Time International Ratio 1.1 Activated Partial Thromboplast Time 25.0 Urine Color YELLOW Urine Turbidity CLEAR Urine pH 7.0 Urine Specific [place] 1.018 Urine Protein 100 Urine Glucose (UA) NEG Urine Ketones 40 Urine Occult Blood TRACE Urine Nitrite NEG Urine Bilirubin NEG Urine Urobilinogen LESS THAN 2.0 Urine Leukocyte Esterase NEG Urine WBC 1 Urine Mucus FEW Microscopic Urinalysis Comment CULT NOT INDICATED Blood Urea Nitrogen 13 Creatinine 1.08 Random Glucose 132 Total Protein 7.2 Albumin 3.7 Calcium Level 8.6 Magnesium Level 1.8 Alkaline Phosphatase 43 Aspartate Amino Transf (AST/SGOT) 38 Alanine Aminotransferase (ALT/SGPT) 28 Total Bilirubin 0.8 Sodium Level 135 Potassium Level 3.6 Chloride Level 101 Carbon Dioxide Level 24.9 Anion Gap 9 Estimat Glomerular Filtration Rate 67 Ammonia 28 Total Creatine Kinase 180 Creatine Kinase MB 6.4 Troponin I 5.62 4.40 B-Type Natriuretic Peptide 116 Lipase 85 Urine Opiates Screen NEG Urine Barbiturates Screen NEG Urine Amphetamines Screen NEG Urine Benzodiazepines Screen POS Urine Cocaine Screen NEG Urine Cannabinoids Screen NEG Ethyl Alcohol Level LESS THAN 3 Result Diagram: 12/17/1755412/17/[address] with evidence of ischemic infarct left occipital lobe MRI brain with large ischemic infarct involving left occipital/temporal parietal region with cerebral edema cerebral edema, no midline shift Caprini VTE Risk Assessment Caprini VTE Risk Assessment: Mod/High Risk (score >= 2) VTE Pharm Contraindication: High risk for bleeding Caprini Risk Assessment Model Point Value = 1 Point Value = 2 Point Value = 3 Point Value = 5 Age 41-60 Minor surgery BMI > 25 kg/m2 Swollen legs Varicose veins or History of unexplained or recurrent spontaneous Oral contraceptives or hormone replacement Sepsis (< 1 month) Serious lung disease, including pneumonia (< 1 month) Abnormal pulmonary function Acute myocardial infarction Congestive heart failure (< 1 month) History of inflammatory bowel disease Medical patient at bed rest Age 61-74 Arthroscopic surgery Major open surgery (> 45 min) Laparoscopic surgery (> 45 min) Malignancy Confined to bed (> 72 hours) Immobilizing plaster cast Central venous access Age >= 75 History of VTE Family history of VTE Factor V Leiden Prothrombin [id number] Lupus anticoagulant Anticardiolipin antibodies Elevated serum homocysteine Heparin-induced thrombocytopenia Other congenital or acquired thrombophilia Stroke (< 1 month) Elective arthroplasty Hip, pelvis, or leg fracture Acute spinal cord injury (< 1 month) Prophylaxis Regimen Total Risk Factor Score Risk Level Prophylaxis Regimen 0-1 Low Early ambulation 2 Moderate Order ONE of the following: *Sequential Compression Device (SCD) *Heparin 5000 units SQ BID 3-4 Higher Order ONE of the following medications: *Heparin 5000 units SQ TID *Enoxaparin/Lovenox 40 mg SQ daily (WT < 150 kg, CrCl > 30 mL/min) *Enoxaparin/Lovenox 30 mg SQ daily (WT < 150 kg, CrCl > 10-29 mL/min) *Enoxaparin/Lovenox 30 mg SQ BID (WT < 150 kg, CrCl > 30 mL/min) AND/OR *Sequential Compression Device (SCD) 5 or more Highest Order ONE of the following medications: *Heparin 5000 units SQ TID (Preferred with Epidurals) *Enoxaparin/Lovenox 40 mg SQ daily (WT < 150 kg, CrCl > 30 mL/min) *Enoxaparin/Lovenox 30 mg SQ daily (WT < 150 kg, CrCl > 10-29 mL/min) *Enoxaparin/Lovenox 30 mg SQ BID (WT < 150 kg, CrCl > 30 mL/min) AND *Sequential Compression Device (SCD) Assessment and Plan Assessment and Plan 77-year-old male with: Large ischemic infarct involving left occipital/temporoparietal region Elevated troponin Recent acute CT CAD A. fib Diabetes mellitus Hyperlipidemia Plan: Neuro: Follow neuro checks. Continue aspirin. Neurology consult requested Dr. Cuevas to evaluate patient and decide anticoagulation though patient at high risk for hemorrhagic conversion due to large area of involvement. Further stroke workup per Dr. Cuevas. Permissive hypertension in view of acute stroke Cardiovascular: Patient underwent cardiac catheterization on 12/15, no intervention done reportedly per family. Elevated troponin probably from recent CT. Cardiology consulted for further evaluation. Continue aspirin, beta gio, statin. Pulmonary: Supplemental O2 as needed, bronchodilators when necessary. GI/liver: By mouth diet per speech and swallow therapist recommendation. Renal/: Strict intake output, monitor and replete electrolites, follow BUN creatinine. IV hydration. Endocrine: SSI for glycemic control Heme: Follow CBC Prophylaxis: PPI/SCDs. Subcutaneous Lovenox when okay with neurology D/W patient's daughter at bedside in detail and she voiced understanding regarding plan of care and was agreeable. Condition critical Time spent on critical care excluding procedures 45 minutes Kyree Sinha MD Dec 17, 2017 15:34
[2017-12-17] MEDS: SODIUM CHLOR 0.9% 1000 ML INJ 1,000 ML IV SCH ×2 (15:49→22:57)
[2017-12-17] MEDS ORDERED: GLUCAGON 1 MG/ML VIAL OTHER PRN (16:00)
[2017-12-17] MEDS ORDERED: DEXTROSE 50% IN WATER 50 ML VIAL(D50) IV PUSH PRN (16:00)
[2017-12-17 16:09] LABS: TROPONIN I 4.21 NG/ML (0.02-0.05)
--- NOTE | 2017-12-17 16:17 | MB ---
cc: Abhijit Cuevas MD, PhD DATE: 12/17/2017 REASON FOR CONSULTATION: Stroke. HISTORY OF PRESENT ILLNESS: Mr. Amaya is a very nice 77-year-old man who presented to the emergency room with headache in the back of his head, which again on Sunday, associated with shoulder pain. He was in the ER at [place] and was admitted there. On Sunday, he underwent cardiac catheterization with normal coronaries, no stents were needed. He was confused and admitted overnight. They thought the confusion was related to sedation. He continues to have headache. He reports with difficulty finding words, difficulty word finding, confusion, and was found on a CT scan of the brain in the ER to have a stroke, prominent low-density area, left posterior temporal occipital lobe. No hemorrhage was identified. He had no focal weakness. He does take an aspirin a day. He was found to be in atrial fibrillation as well. Apparently, he was not aware of this in the past. His troponin was found to be elevated as well in the ER. PAST MEDICAL HISTORY: History of knee replacement, CABG procedure in past. ALLERGIES: NONE. MEDICATIONS AT HOME: He takes an aspirin a day. CURRENT MEDICATIONS: Lipitor 40 mg daily, DuoNeb, aspirin 81 mg daily, Coreg 3.125 mg q. 12 hours, famotidine 20 mg daily, potassium chloride, magnesium sulfate, Tylenol p.r.n. PHYSICAL EXAMINATION: VITAL SIGNS: Blood pressure is 133/87, pulse 81, respiratory rate is 18, temperature 97.8 degrees. NEUROLOGIC: Higher cortical function, he is alert. He follows simple commands. He can repeat phrases. He has difficulty with word finding ability. Cranial nerves intact. Motor exam, no evidence of focal weakness is identified. There is no drift. . Reflexes are symmetric. DIAGNOSTIC DATA: CT of the brain as noted above. He had a brain MRI as well. It shows a large area of acute to subacute infarction involving the inferior temporal lobe and inferior parietal lobe on the left as well as the left occipital lobe with restricted diffusion, surrounding edema, mild mass effect is identified. There is no midline shift. Small area of restricted diffusion is seen in the right cerebellar hemisphere and upper cerebellum on the right. There is mild streaky enhancement throughout this region. No evidence of mass. MRA of the brain, occluded branch, left TECHNICAL ADMINISTRATIVE ASSISTANT, hypoplastic left A1 segment. Neck MRA, no evidence of any carotid artery stenosis. Vertebrals are normal. LABORATORY DATA: The white count is 9000, hemoglobin 13.4, hematocrit 38.7%, platelet count 176,000. PT 10.7, INR 1.1, aPTT 25. Sodium is 135, potassium 3.6, chloride 101, CO2 of 24.9, creatinine 1.08, BUN is 13, AST 38, ALT is 28. Ammonia 28. IMPRESSION: Acute stroke, mainly in the left posterior parietal temporal occipital area, but also in the cerebellum on the right side, suggesting probable cardioembolic stroke. RECOMMENDATION: Continue aspirin for now. Would not recommend anticoagulation at the present time because of the hemorrhagic risk into the large stroke. Would recommend repeating CT of the brain in the next 3 days or so and if stable, consider full anticoagulation at that time. Will obtain an echocardiogram as well as lipid panel. Abhijit Cuevas MD, PhD AYDEN/SB , 03:49 PM , 04:16 PM
[2017-12-17] MEDS: INSULIN ASPART SUPPLEMENTAL SCALE SQ SCH ×2 (17:00→21:00)
[2017-12-17] MEDS ORDERED: HALOPERIDOL LACTATE 5 MG/ML AMP IV PUSH PRN (17:15)
[2017-12-17] MEDS ORDERED: LORazepam 2 MG/ML VIAL IV ONE (19:45)
[2017-12-17] MEDS ORDERED: REMOVE OLD NICOTINE PATCH T-DERMAL PRN (19:45)
[2017-12-17] MEDS ORDERED: NICOTINE 21 MG/24 HR PATCH T-DERMAL PRN (19:45)
[2017-12-17] MEDS ORDERED: ACETAMINOPHEN 325 MG TAB PO PRN (19:45)
[2017-12-17] MEDS ORDERED: ALUMINUM/MAGNESIUM/SIMETH 30 ML CUP PO PRN (19:45)
[2017-12-17] MEDS: ATORVASTATIN 40 MG TAB PO SCH (20:34)
[2017-12-17] MEDS: SODIUM CHLORIDE 0.9% FLUSH 10 ML FLUSH IV FLUSH SCH (20:35)
[2017-12-18] VITALS (17 sets, daily range): BP systolic 117–145; BP diastolic 66–83; PULSE 62–75; RESP 17–42; TEMP 98–99; O2SAT 91–97
--- NOTE | 2017-12-18 00:03 | EKG ---
Date Performed: 12/17/2017 Time Performed: 10:58:13 PTAGE: 77 years EKG: ATRIAL FIBRILLATION WITH PREMATURE COMPLEXES POSSIBLE RIGHT VENTRICULAR CONDUCTION DELAY NM OBABLE LATERAL MYOCARDIAL INFARCTION ABNORMAL ECG NO PREVIOUS TRACING DOCTOR: Mark Rinaldi Interpretating Date/Time 12/17/2017 23:59:07
--- NOTE | 2017-12-18 00:13 | EKG ---
Date Performed: 12/17/2017 Time Performed: 05:31:41 PTAGE: 77 years EKG: ATRIAL FIBRILLATION WITH RAPID VENTRICULAR RESPONSE POSSIBLE RIGHT VENTRICULAR CONDUCTION D ELAY INFERIOR MYOCARDIAL INFARCTION ST DEPRESSION, CONSIDER SUBENDOCARDIAL INJURY ABNORMAL ECG NO PREVIOUS TRACING DOCTOR: Mark Rinaldi Interpretating Date/Time 12/18/2017 00:06:00
[2017-12-18] MEDS: CHLORHEXIDINE GLUCONATE 2 % 1 PACK (2 CLOTHS) TOP SCH (02:27)
[2017-12-18] MEDS: RESP: ALBUTEROL 2.5 MG/IPRATROPIUM 0.5 MG NEB (SCH) INH ×4 (03:15→21:11)
[2017-12-18 04:25] LABS: AUTOMATED NEUTROPHIL # 6.3 TH/MM3 (1.8-7.7); BASOPHIL % 0.4 % (0.0-2.0); EOSINOPHIL # 0.2 TH/MM3 (0-0.4); EOSINOPHIL % 2.1 % (0.0-4.0); HEMATOCRIT 34.6 % (39.0-51.0); HEMOGLOBIN 12.1 GM/DL (13.0-17.0); LYMPH % 19.1 % (9.0-44.0); LYMPHOCYTE # 1.7 TH/MM3 (1.0-4.8); MEAN CELL VOLUME 91.4 FL (80.0-100.0); MEAN CORPUSCULAR HEMOGLOBIN 31.8 PG (27.0-34.0); MEAN CORPUSCULAR HGB CONC 34.8 % (32.0-36.0); MEAN PLATELET VOLUME 8.6 FL (7.0-11.0); MONO % 9.5 % (0.0-8.0); MONOCYTE # 0.9 TH/MM3 (0-0.9); NEUT % 68.9 % (16.0-70.0); PLATELET COUNT 180 TH/MM3 (150-450); RED BLOOD COUNT 3.79 MIL/MM3 (4.50-5.90); RED CELL DISTRIBUTION WIDTH 12.7 % (11.6-17.2); WHITE BLOOD COUNT 9.2 TH/MM3 (4.0-11.0)
[2017-12-18 04:33] LABS: INTERNATIONAL NORMALIZED RATIO 1.1 RATIO; PROTHROMBIN TIME - PATIENT 10.7 SEC (9.8-11.6)
[2017-12-18 04:51] LABS: ALBUMIN 3.2 GM/DL (3.4-5.0); ALT (GPT) 21 U/L (12-78); AST (GOT) 25 U/L (15-37); BICARBONATE 23.9 MEQ/L (21.0-32.0); BLOOD UREA NITROGEN 15 MG/DL (7-18); CALCIUM 7.9 MG/DL (8.5-10.1); CHLORIDE 103 MEQ/L (98-107); CHOLESTEROL 91 MG/DL (120-200); CREATININE 0.96 MG/DL (0.60-1.30); GLOMERULAR FILTRATION RATE 76 ML/MIN (>89); GLUCOSE,RANDOM 96 MG/DL (74-106); MAGNESIUM 1.9 MG/DL (1.5-2.5); PHOSPHORUS 2.5 MG/DL (2.5-4.9); SODIUM (NA) 137 MEQ/L (136-145); TRIGLYCERIDES 115 MG/DL (42-150)
[2017-12-18 04:54] LABS: ALKALINE PHOSPHATASE 38 U/L (45-117); CHOLESTEROL/ HDL RATIO 2.81 RATIO; HDL CHOLESTEROL 32.3 MG/DL (40.0-60.0); LDL CHOLESTEROL 36 MG/DL (0-99); TOTAL BILIRUBIN ADULT 0.7 MG/DL (0.2-1.0); TOTAL PROTEIN 6.7 GM/DL (6.4-8.2)
--- NOTE | 2017-12-18 05:55 | RADRPT ---
EXAM DATE/TIME: 12/18/2017 04:29 [place] COMPARISON: CHEST SINGLE AP, December 17, 2017, 5:26. INDICATIONS : Short of breath. MEDICAL HISTORY : Diabetes mellitus type 2. Hypertension. SURGICAL HISTORY : CABG. ENCOUNTER: Subsequent ACUITY: 2 days PAIN SCORE: Non-responsive. LOCATION: Bilateral chest FINDINGS: A single view of the chest demonstrates the lungs to be symmetrically aerated without evidence of mas s, infiltrate or effusion. Elevation left hemidiaphragm. Status post CABG. The cardiomediastinal cont ours are unremarkable. Osseous structures are intact. CONCLUSION: Stable chest. All Bueno MD on December 18, 2017 at 5:52 Board Certified Radiologist. This report was verified electronically.
[2017-12-18] MEDS: SODIUM CHLOR 0.9% 1000 ML INJ 1,000 ML IV SCH ×2 (06:07→10:30)
[2017-12-18] MEDS: INSULIN ASPART SUPPLEMENTAL SCALE SQ SCH ×4 (08:00→20:48)
--- NOTE | 2017-12-18 08:54 | PD.CONS ---
HPI Service cardiology Consult Requested By Reason for Consult NSTEMI Primary Care Physician Unknown History of Present Illness This is a pleasant 77 yo WM with prior CABG x 4 (eight years ago), HTN, HLD and diabetes who presents with confusion, headache and left shoulder/neck pain x 1 day. He was admitted to [facility] over this past weekend for chest pain and underwent cardiac catheterization which showed normal coronary arteries and was discharged. He developed confusion and weakness after discharge and came to [facility] for evaluation. Upon presentation he was in afib RVR with heart rate 140bpm, imaging revealed large ischemic stroke, and troponins elevated. Cardizem drip was started and patient has now converted to NSR with rate control. He currently denies chest pain, sob or palpitation. (Radha Espinal) Review of Systems Consitutional: DENIES: Fever, Chills, Weight gain, Weight loss Respiratory: DENIES: Cough, Snoring, Shortness of breath, Wheezing, Sputum production Cardiovascular: DENIES: Chest pain, Palpitations, Syncope, Tachycardia Gastrointestinal: DENIES: Nausea, Vomiting, Change in bowel habits, Reflux, Bloody stools, Melena (Radha Espinal) Past Family Social History Allergies: Coded Allergies: No Known Allergies (Unverified , 12/17/17) Past Medical History hypertension, hyperlipidemia, diabetes mellitus, history of an irregular heartbeat, coronary artery disease. Past Surgical History quadruple bypass, left knee replacement Reported Medications Reported Meds & Active Scripts Active Reported Norvasc (Amlodipine Besylate) 5 Mg Tab 5 Mg PO DAILY Carvedilol 3.125 Mg Tab 3.125 Mg PO BID Aspirin 81 Mg Chew 81 Mg PO DAILY Crestor (Rosuvastatin Calcium) 40 Mg Tab 40 Mg PO DAILY Pantoprazole (Pantoprazole Sodium) 40 Mg Tab 40 Mg PO DAILY Lisinopril 40 Mg Tab 40 Mg PO DAILY Metformin (Metformin HCl) 500 Mg Tab 500 Mg PO BIDPC Active Ordered Medications Current Medications Medications (Trade) Dose Ordered Sig/Naomi Route Start Time Stop Time Status Last Admin Diltiazem HCl 125 mg/Sodium Chloride 125 ml @ 5 mls/hr TITRATE PRN IV 12/17/17 05:45 12/17/17 20:41 (Coreg) 3.125 mg Q12HR PO 12/17/17 09:00 12/17/17 20:34 (Lipitor) 40 mg HS PO 12/17/17 21:00 12/17/17 20:34 (Aspirin Chew) 81 mg DAILY CHEW 12/17/17 09:00 12/17/17 10:09 (Tylenol) 650 mg Q6H PRN PO 12/17/17 07:30 12/17/17 18:02 (Pepcid Inj) 20 mg Q12HR IV PUSH 12/17/17 09:00 12/17/17 20:33 (Duoneb Neb) 1 ampule Q6HR NEB INH 12/17/17 10:00 12/18/17 08:34 (Duoneb Neb) 1 ampule Q4HR NEB PRN INH 12/17/17 07:30 Miscellaneous Information 1 Q361D XX 12/17/17 07:30 (Chlorhexidine 2% Cloth) 3 pack Taper DAILY@04 TOP 12/18/17 04:00 12/14/18 03:59 (Chlorhexidine 2% Cloth) 3 pack UNSCH PRN TOP 12/17/17 07:30 (Mariluz-Colace) 1 tab BID PO 12/17/17 09:00 12/17/17 20:34 (Milk Of Magnesia Liq) 30 ml Q12H PRN PO 12/17/17 07:30 (Senokot) 17.2 mg Q12H PRN PO 12/17/17 07:30 (Dulcolax Supp) 10 mg DAILY PRN RECTAL 12/17/17 07:30 (Lactulose Liq) 30 ml DAILY PRN PO 12/17/17 07:30 Potassium Chloride 100 ml @ 50 mls/hr Q2H PRN IV 12/17/17 07:45 Potassium Chloride 100 ml @ 50 mls/hr Q2H PRN IV 12/17/17 07:45 (K-Lyte Cl Eff) 50 meq UNSCH PRN PO 12/17/17 07:45 Potassium Chloride 100 ml @ 25 mls/hr UNSCH PRN IV 12/17/17 07:45 Potassium Chloride 100 ml @ 50 mls/hr Q2H PRN IV 12/17/17 07:45 Magnesium Sulfate 4 gm/Sodium Chloride 100 ml @ 50 mls/hr UNSCH PRN IV 12/17/17 07:45 (Mag-Ox) 800 mg UNSCH PRN PO 12/17/17 07:45 Magnesium Sulfate 2 gm/Sodium Chloride 100 ml @ 50 mls/hr UNSCH PRN IV 12/17/17 07:45 (K-Phos) 2,000 mg Q4H PRN PO 12/17/17 07:45 Sodium Phosphate 30 mmol/Sodium Chloride 250 ml @ 42 mls/hr UNSCH PRN IV 12/17/17 07:45 (K-Phos) 2,000 mg UNSCH PRN PO/TUBE 12/17/17 07:45 Potassium Phosphate 30 mmol/ Sodium Chloride 260 ml @ 42 mls/hr UNSCH PRN IV 12/17/17 07:45 (NS Flush) 2 ml BID IV FLUSH 12/17/17 21:00 12/17/17 20:35 (NS Flush) 2 ml UNSCH PRN IV FLUSH 12/17/17 16:00 Sodium Chloride 1,000 ml @ 70 mls/hr [id number] IV 12/17/17 15:49 12/17/17 15:49 (NovoLOG SUPPLEMENTAL SCALE) 1 ACHS SQ 12/17/17 17:00 (D50w (Vial) Inj) 50 ml UNSCH PRN IV PUSH 12/17/17 16:00 (Glucagon Inj) 1 mg UNSCH PRN OTHER 12/17/17 16:00 (Haldol Inj) 2 mg Q4HR PRN IV PUSH 12/17/17 17:15 12/17/17 18:03 (Tylenol) 650 mg Q4H PRN PO 12/17/17 19:45 (Milk Of Magnesia Liq) 30 ml DAILY PRN PO 12/17/17 19:45 (Mag-Al Plus Susp Liq) 30 ml Q6H PRN PO 12/17/17 19:45 (Habitrol 21 Mg Patch.24 Hr) 1 patch DAILY PRN T-DERMAL 12/17/17 19:45 Miscellaneous Information 1 HS PRN T-DERMAL 12/17/17 19:45 Sodium Chloride 1,000 ml @ 80 mls/hr [id number] IV 12/17/17 22:00 12/17/17 22:57 Family History non-contributory Social History Past Medical History Narrative Medical The patient's past medical history is significant for hypertension, hyperlipidemia, diabetes mellitus, history of an irregular heartbeat, coronary artery disease. Medical History: Unable to Obtain Cardiovascular Problems: Yes Past Surgical History Narrative Surgical The patient's past surgical history is significant for quadruple bypass, left knee replacement Social History Alcohol Use: Yes (OCC) Tobacco Use: No Substance Use: No Allergies-Medications (Allergen,Severity, Reaction): Coded Allergies: No Known Allergies (Unverified , 12/17/17) denies etoh, tobacco or illicit drugs (Radha Espinal) Physical Exam Vital Signs Vital Signs Date Time Temp Pulse Resp B/P (MAP) Pulse Ox O2 Delivery O2 Flow Rate FiO2 12/18/17 08:32 93 Nasal Cannula 3.00 12/18/17 04:00 98.0 62 26 117/66 (83) 94 12/18/17 03:16 97 Nasal Cannula 3.00 12/18/17 00:00 99.0 68 28 120/73 (89) 92 12/17/17 23:41 97 Nasal Cannula 2.00 12/17/17 23:00 76 12/17/17 20:41 75 139/70 12/17/17 20:01 32 12/17/17 20:00 98.2 68 26 129/75 (93) 94 12/17/17 20:00 68 12/17/17 19:00 94 Nasal Cannula 2.00 12/17/17 18:00 88 28 123/82 (96) 96 12/17/17 17:00 82 27 116/53 (74) 94 12/17/17 16:00 98.4 90 22 115/81 (92) 98 12/17/17 13:16 97.8 81 18 133/87 (102) 97 Nasal Cannula 3.00 12/17/17 12:00 97.8 84 20 129/73 (91) 98 Nasal Cannula 3.00 12/17/17 11:08 97 Nasal Cannula 2.00 12/17/17 10:48 98.0 89 20 129/73 (91) 97 Nasal Cannula 3.00 Physical Exam GENERAL: SKIN: Warm and dry. HEAD: Atraumatic. Normocephalic. EYES: Pupils equal and round. ENT: No nasal bleeding or discharge. NECK: Trachea midline. No JVD. CARDIOVASCULAR: Regular rate and rhythm. no murmurs RESPIRATORY: No accessory muscle use. Clear to auscultation. Breath sounds equal bilaterally. GASTROINTESTINAL: Abdomen soft, non-tender, nondistended. MUSCULOSKELETAL: Extremities without clubbing, cyanosis, or edema. NEUROLOGICAL: Awake and alert. Normal speech. PSYCHIATRIC: Appropriate mood and affect; insight and judgment normal. Laboratory Laboratory Tests Test 12/17/17 11:52 12/17/17 19:25 12/18/17 03:10 Phosphorus Level 2.7 2.5 Total Creatine Kinase 159 Troponin I 4.21 White Blood Count 9.2 Red Blood Count 3.79 Hemoglobin 12.1 Hematocrit 34.6 Mean Corpuscular Volume 91.4 Mean Corpuscular Hemoglobin 31.8 Mean Corpuscular Hemoglobin Concent 34.8 Red Cell Distribution Width 12.7 Platelet Count 180 Mean Platelet Volume 8.6 Neutrophils (%) (Auto) 68.9 Lymphocytes (%) (Auto) 19.1 Monocytes (%) (Auto) 9.5 Eosinophils (%) (Auto) 2.1 Basophils (%) (Auto) 0.4 Neutrophils # (Auto) 6.3 Lymphocytes # (Auto) 1.7 Monocytes # (Auto) 0.9 Eosinophils # (Auto) 0.2 Basophils # (Auto) 0.0 CBC Comment DIFF FINAL Differential Comment Prothrombin Time 10.7 Prothromb Time International Ratio 1.1 Blood Urea Nitrogen 15 Creatinine 0.96 Random Glucose 96 Total Protein 6.7 Albumin 3.2 Calcium Level 7.9 Magnesium Level 1.9 Alkaline Phosphatase 38 Aspartate Amino Transf (AST/SGOT) 25 Alanine Aminotransferase (ALT/SGPT) 21 Total Bilirubin 0.7 Sodium Level 137 Potassium Level 3.7 Chloride Level 103 Carbon Dioxide Level 23.9 Anion Gap 10 Estimat Glomerular Filtration Rate 76 Triglycerides Level 115 Cholesterol Level 91 LDL Cholesterol 36 HDL Cholesterol 32.3 Cholesterol/HDL Ratio 2.81 (Radha Espinal) Result Diagram: 12/18/1730912/18/17309 Imaging Last 48 hours Impressions Brain MRI 12/17/17 0642 Signed Impressions: Service Date/Time: Sunday, December 17, 2017 09:23 - CONCLUSION: 1. The abnormality on CT corresponds to a large area of acute to subacute infarction. 2. No evidence of underlying mass or hemorrhage. 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 Hypoplastic left A1. Mario Robertson MD Head CT 12/17/1715 Signed Impressions: Service Date/Time: Sunday, December 17, 2017 05:35 - CONCLUSION: 1. Prominent area of low density throughout the left posterior temporal/occipital lobe concerning for infarct versus underlying mass/edema. Contrast MRI recommended. 2. Nonspecific white matter changes. All Bueno MD Chest X-Ray 12/17/17514 Signed Impressions: Service Date/Time: Sunday, December 17, 2017 05:26 - CONCLUSION: 1. Elevation left hemidiaphragm. 2. Status post CABG. All Bueno MD Neck Magnetic Resonance Angiography 12/17/17 0000 Signed Impressions: Service Date/Time: Sunday, December 17, 2017 09:23 - CONCLUSION: No evidence of carotid stenosis Mario Robertson MD (Radha Espinal) Assessment and Plan Problem List: (1) Elevated troponin ICD Codes: R74.8 - Abnormal levels of other serum enzymes Status: Acute (2) Ischemic stroke ICD Codes: I63.9 - Cerebral infarction, unspecified Status: Acute (3) Atrial fibrillation with RVR ICD Codes: I48.91 - Unspecified atrial fibrillation Status: Acute Assessment and Plan 77 yo WM with prior CABG x 4 (eight years ago), HTN, HLD and diabetes who presents with confusion, headache and left shoulder/neck pain x 1 day. He was admitted to [facility] over this past weekend for chest pain and underwent cardiac catheterization which showed normal coronary arteries and was discharged. He developed confusion and weakness after discharge and came to [facility] for evaluation. Upon presentation he was in afib RVR with heart rate 140bpm, imaging revealed large ischemic stroke, and troponins elevated. Cardizem drip was started and patient has now converted to NSR with rate control. He currently denies chest pain, sob or palpitation. NSTEMI- elevated troponin likely demand mediated recent cardiac cath did not reveal CAD, repeat cath not recommended. echo ordered afib RVR- now in NSR, rate controlled. CHADS-VASC>3- anticoagulation once cleared by neuro, cont asa d/c cardizem gtt CVA- ischemic, neuro following (Radha Espinal) Assessment and Plan CAD CABG - [facility] "no change" compared to prior. obvious patient has CAD with prior CABG, but unclear if all grafts still patent. Regardless, it was decided medical therapy was most appropriate. NSTEMI - no plan for invasive strategy given recent cardiac catheterization and recent stroke with contraindication for anticoagulation at this time. CVA -etiology either atheroembolic during cardiac catheterization versus thromboembolic secondary to newly diagnosed atrial fibrillation. Given size since hemorrhagic conversion, anticoagulation is contraindicated at this time. Patient is currently in normal sinus rhythm. We will initiate amiodarone bolus followed by 24 hour trip. This is to help maintain sinus rhythm. After 24 hour drip please convert patient to amiodarone 200 mg once daily. Going to discontinue beta-gio given relative bradycardia and hypotension for the administration of amiodarone. Recommend initiation of anticoagulation therapy once cleared by neurology. Call with further questions We will sign off. (Torin Campbell MD) Radha Espinal Dec 18, 2017 08:54 Torin Campbell MD Dec 18, 2017 11:15
[2017-12-18] MEDS: SODIUM CHLORIDE 0.9% FLUSH 10 ML FLUSH IV FLUSH SCH ×2 (09:00→20:48)
[2017-12-18] MEDS: ASPIRIN 81 MG CHEW TAB CHEW SCH (11:00)
[2017-12-18] MEDS: DOCUSATE SODIUM 50 MG/SENNA 8.6 MG TAB PO SCH ×2 (11:00→20:48)
[2017-12-18] MEDS: FAMOTIDINE 20 MG TAB PO SCH ×2 (11:00→20:47)
[2017-12-18] MEDS: CARVEDILOL 3.125 MG TAB PO SCH (11:00)
[2017-12-18] MEDS ORDERED: AMIODARONE INJ 150 MG in DEXTROSE 5% IN WATER 100ML INJ 100 ML IV ONE ×2 (11:10)
[2017-12-18] MEDS ORDERED: AMIODARONE INJ 450 MG in DEXTROSE 5% IN WATE(EXCEL) INJ 241 ML IV PRN ×2 (11:20)
[2017-12-18] MEDS ORDERED: AMIODARONE INJ 450 MG in SODIUM CHLOR 0.9% (EXCEL) INJ 250 ML IV PRN (11:45)
--- NOTE | 2017-12-18 14:33 | ECHRPT ---
Indication: CONCLUSIONS The left ventricular systolic function is mildly reduced with an estimated ejection fraction in the range of 45- 50%. Normal left ventricular size. There is assymetric septal hypertrophy. Mild thickening of the mitral valve leaflets. Bzjr-iq-hwqljdrd mitral valve regurgitation. Mild thickening of the aortic valve leaflets. mean gradient = 9 mm hg [id number]-[id number] aortic valve regurgitation. There is trace tricuspid valve regurgitation. The estimated pulmonary arterial pressure is 35.2 mmHg. BP: 117 / 66 HR: Rhythm: MEASUREMENTS (Male / Female) Normal Values Technical Quality:Fair 2D ECHO LV Diastolic Diameter PLAX 4.8 cm 4.2 - 5.9 / 3.9 - 5.3 cm LV Systolic Diameter PLAX 3.6 cm IVS Diastolic Thickness 1.6 cm 0.6 - 1.0 / 0.6 - 0.9 cm LVPW Diastolic Thickness 1.0 cm 0.6 - 1.0 / 0.6 - 0.9 cm LV Relative Wall Thickness 0.5 LVOT Diameter 2.1 cm LA Systolic Diameter LX 4.9 cm 3.0 - 4.0 / 2.7 - 3.8 cm M-MODE Aortic Root Diameter MM 3.6 cm LA Systolic Diameter MM 4.1 cm LA Ao Ratio MM 1.1 AV Cusp Separation MM 2.3 cm DOPPLER AV Peak Velocity 225.0 cm/s AV Peak Gradient 20.3 mmHg AV Mean Gradient 9.0 mmHg AV Velocity Time Integral 36.7 cm AI Peak Velocity 446.7 cm/s AI Peak Gradient 79.8 mmHg AI Pressure Half Time 410.0 ms LVOT Peak Velocity 138.0 cm/s LVOT Peak Gradient 7.6 mmHg LVOT Velocity Time Integral 29.7 cm AV Area Cont Eq vti 2.8 cm AV Area Cont Eq pk 2.1 cm MV Area PHT 2.8 cm Mitral E Point Velocity 74.4 cm/s Mitral A Point Velocity 107.0 cm/s Mitral E to A Ratio 0.7 LV E' Lateral Velocity 9.9 cm/s Mitral E to LV E' Lateral Ratio 7.5 LV E' Septal Velocity 8.4 cm/s Mitral E to LV E' Septal Ratio 8.9 TR Peak Velocity 251.0 cm/s TR Peak Gradient 25.2 mmHg Right Atrial Pressure 10.0 mmHg Pulmonary Artery Systolic Pressu 35.2 mmHg Right Ventricular Systolic Press 35.2 mmHg FINDINGS LEFT VENTRICLE The left ventricular systolic function is mildly reduced with an estimated ejection fraction in the range of 45- 50%. Normal left ventricular size. There is assymetric septal hypertrophy. RIGHT VENTRICLE Normal right ventricular size and systolic function. LEFT ATRIUM The left atrial size is normal. RIGHT ATRIUM The right atrial size is normal. ATRIAL SEPTUM Normal atrial septal thickness without atrial level shunting by limited color doppler interrogation. AORTA The aortic root and proximal ascending aorta are normal in size on limited imaging. MITRAL VALVE Mild thickening of the mitral valve leaflets. Kdgs-gi-yltsjrlj mitral valve regurgitation. AORTIC VALVE Trileaflet aortic valve. Mild thickening of the aortic valve leaflets. [id number]-[id number] aortic valve regurgitation. TRICUSPID VALVE Structurally normal tricuspid valve. There is trace tricuspid valve regurgitation. The estimated pulmonary arterial pressure is 35.2 mmHg. PULMONARY VALVE No pulmonary valve regurgitation or stenosis. VESSELS The inferior vena cava is normal in size. PERICARDIUM No pericardial effusion. Kai Priest MD, FACC, FSCAI (Electronically Signed) Final Date:18 December 2017 14:32
--- NOTE | 2017-12-18 17:17 | HHI.PR ---
Subjective Remarks 77-year-old male with large area of left BONUS CLERK stroke. He states that he feels well and would like to graduate from the ICU. He feels ready to eat and ready to walk. Objective Vitals Vital Signs Date Time Temp Pulse Resp B/P (MAP) Pulse Ox O2 Delivery O2 Flow Rate FiO2 12/18/17 12:30 64 114/68 12/18/17 12:30 65 119/66 12/18/17 12:00 98.4 68 29 119/66 (83) 94 12/18/17 08:32 93 Nasal Cannula 3.00 12/18/17 08:00 98.2 68 31 129/71 (90) 91 12/18/17 07:00 68 12/18/17 07:00 91 Nasal Cannula 2.00 12/18/17 04:00 98.0 62 26 117/66 (83) 94 12/18/17 03:16 97 Nasal Cannula 3.00 12/18/17 00:00 99.0 68 28 120/73 (89) 92 12/17/17 23:41 97 Nasal Cannula 2.00 12/17/17 23:00 76 12/17/17 20:41 75 139/70 12/17/17 20:01 32 12/17/17 20:00 98.2 68 26 129/75 (93) 94 12/17/17 20:00 68 12/17/17 19:00 94 Nasal Cannula 2.00 12/17/17 18:00 88 28 123/82 (96) 96 I/O 12/17/17 12/17/17 12/17/17 12/18/17 12/18/17 12/18/17 07:00 15:00 23:00 07:00 15:00 23:00 Intake Total 300 ml 1007 ml 1037 ml Output Total 250 ml 575 ml Balance 300 ml 757 ml -575 ml 1037 ml Intake Oral 75 ml IV Total 300 ml 932 ml 1037 ml Output Urine Total 250 ml 575 ml # Bowel Movements 0 Result Diagram: 12/18/1730912/18/17309 Objective Remarks GENERAL: Well-nourished, well-developed patient. SKIN: Warm and dry. HEAD: Normocephalic. EYES: No scleral icterus. No injection or drainage. NECK: Supple, trachea midline. No JVD or lymphadenopathy. CARDIOVASCULAR: Regular rate and rhythm without murmurs, gallops, or rubs. RESPIRATORY: Breath sounds equal bilaterally. No accessory muscle use. GASTROINTESTINAL: Abdomen soft, non-tender, nondistended. EXTREMITIES: No cyanosis, or edema. NEUROLOGICAL: Awake, alert, and oriented x 3. Currently undergoing physical therapy evaluation regarding balance A/P Problem List: (1) Ischemic stroke ICD Code: I63.9 - Cerebral infarction, unspecified Status: Acute Assessment and Plan Large ischemic infarct involving left occipital/temporoparietal region Initially had left-sided weakness with aphasia, many of his symptoms are now clearing Patient beginning physical therapy today Anticoagulants held due to size of stroke and risk of bleeding Patient is stable today to transfer out of the ICU Past swallowing study, diet added Appreciate neurology following Atrial fibrillation Resolved to normal sinus rhythm during this stay Continue amiodarone Appreciate cardiology following Elevated troponin Patient had normal heart catheterization without stent placement at his hospitalization at [facility] last Sunday Troponin elevation may have been stress related Diabetes mellitus Accu-Cheks with sliding scale insulin coverage Diabetic diet Hyperlipidemia Continue statin DVT prophylaxis Anticoagulants held due to large area of stroke and risk of bleeding Elliot Ochoa MD Dec 18, 2017 17:17
[2017-12-18] MEDS: ATORVASTATIN 40 MG TAB PO SCH (20:47)
--- NOTE | 2017-12-18 21:27 | HHI.PR ---
Review/Management Diagnosis left posterior parieto occipital cva atrial fibrillation Plan repeat CT brain and consider anticoagulation if stable Diagnosis/Plan: Subjective Subjective Comments No acute events reported Active Medications Current Medications Medications (Trade) Dose Ordered Sig/Naomi Route Start Time Stop Time Status Last Admin (Lipitor) 40 mg HS PO 12/17/17 21:00 12/18/17 20:47 (Aspirin Chew) 81 mg DAILY CHEW 12/17/17 09:00 12/18/17 11:00 (Tylenol) 650 mg Q6H PRN PO 12/17/17 07:30 12/17/17 18:02 (Duoneb Neb) 1 ampule Q6HR NEB INH 12/17/17 10:00 12/18/17 21:11 (Duoneb Neb) 1 ampule Q4HR NEB PRN INH 12/17/17 07:30 Miscellaneous Information 1 Q361D XX 12/17/17 07:30 (Chlorhexidine 2% Cloth) 3 pack Taper DAILY@04 TOP 12/18/17 04:00 12/14/18 03:59 (Chlorhexidine 2% Cloth) 3 pack UNSCH PRN TOP 12/17/17 07:30 (Mariluz-Colace) 1 tab BID PO 12/17/17 09:00 12/18/17 11:00 (Milk Of Magnesia Liq) 30 ml Q12H PRN PO 12/17/17 07:30 (Senokot) 17.2 mg Q12H PRN PO 12/17/17 07:30 (Dulcolax Supp) 10 mg DAILY PRN RECTAL 12/17/17 07:30 (Lactulose Liq) 30 ml DAILY PRN PO 12/17/17 07:30 Potassium Chloride 100 ml @ 50 mls/hr Q2H PRN IV 12/17/17 07:45 Potassium Chloride 100 ml @ 50 mls/hr Q2H PRN IV 12/17/17 07:45 (K-Lyte Cl Eff) 50 meq UNSCH PRN PO 12/17/17 07:45 Potassium Chloride 100 ml @ 25 mls/hr UNSCH PRN IV 12/17/17 07:45 Potassium Chloride 100 ml @ 50 mls/hr Q2H PRN IV 12/17/17 07:45 Magnesium Sulfate 4 gm/Sodium Chloride 100 ml @ 50 mls/hr UNSCH PRN IV 12/17/17 07:45 (Mag-Ox) 800 mg UNSCH PRN PO 12/17/17 07:45 Magnesium Sulfate 2 gm/Sodium Chloride 100 ml @ 50 mls/hr UNSCH PRN IV 12/17/17 07:45 (K-Phos) 2,000 mg Q4H PRN PO 12/17/17 07:45 Sodium Phosphate 30 mmol/Sodium Chloride 250 ml @ 42 mls/hr UNSCH PRN IV 12/17/17 07:45 (K-Phos) 2,000 mg UNSCH PRN PO/TUBE 12/17/17 07:45 Potassium Phosphate 30 mmol/ Sodium Chloride 260 ml @ 42 mls/hr UNSCH PRN IV 12/17/17 07:45 (NS Flush) 2 ml BID IV FLUSH 12/17/17 21:00 12/18/17 20:48 (NS Flush) 2 ml UNSCH PRN IV FLUSH 12/17/17 16:00 (NovoLOG SUPPLEMENTAL SCALE) 1 ACHS SQ 12/17/17 17:00 (D50w (Vial) Inj) 50 ml UNSCH PRN IV PUSH 12/17/17 16:00 (Glucagon Inj) 1 mg UNSCH PRN OTHER 12/17/17 16:00 (Haldol Inj) 2 mg Q4HR PRN IV PUSH 12/17/17 17:15 12/17/17 18:03 (Tylenol) 650 mg Q4H PRN PO 12/17/17 19:45 (Mag-Al Plus Susp Liq) 30 ml Q6H PRN PO 12/17/17 19:45 (Habitrol 21 Mg Patch.24 Hr) 1 patch DAILY PRN T-DERMAL 12/17/17 19:45 Miscellaneous Information 1 HS PRN T-DERMAL 12/17/17 19:45 (Pepcid) 20 mg BID PO 12/18/17 09:00 12/18/17 20:47 Amiodarone HCl 450 mg/Sodium Chloride 259 ml @ 33.33 mls/ hr Q7H47M PRN IV 12/18/17 11:45 12/18/17 12:30 Allergies Allergies Coded Allergies No Known Allergies (Unverified12/17/17) Exam I&O / VS 12/18/17 12/18/17 12/19/17 15:00 23:00 07:00 Intake Total 1212 ml 340 ml Output Total 950 ml Balance 1212 ml -610 ml Intake Oral 240 ml IV Total 1212 ml 100 ml Output Urine Total 950 ml # Bowel Movements 1 Vital Signs Date Time Temp Pulse Resp B/P (MAP) Pulse Ox O2 Delivery O2 Flow Rate FiO2 12/18/17 21:11 91 21 12/18/17 18:15 69 17 145/74 (97) 95 12/18/17 16:00 98.2 72 42 127/75 (92) 94 12/18/17 15:00 66 12/18/17 12:30 64 114/68 12/18/17 12:30 65 119/66 12/18/17 12:00 98.4 68 29 119/66 (83) 94 12/18/17 08:32 93 Nasal Cannula 3.00 12/18/17 08:00 98.2 68 31 129/71 (90) 91 12/18/17 07:00 68 12/18/17 07:00 91 Nasal Cannula 2.00 12/18/17 04:00 98.0 62 26 117/66 (83) 94 12/18/17 03:16 97 Nasal Cannula 3.00 12/18/17 00:00 99.0 68 28 120/73 (89) 92 12/17/17 23:41 97 Nasal Cannula 2.00 12/17/17 23:00 76 Exam Comments alert, speech dysarthric, diminished comprehensiin and anomia CN intact MOTOR 5/5 BUE and BLE Objective Micro and Labs Laboratory Tests Test 12/18/17 03:10 White Blood Count 9.2 Red Blood Count 3.79 Hemoglobin 12.1 Hematocrit 34.6 Mean Corpuscular Volume 91.4 Mean Corpuscular Hemoglobin 31.8 Mean Corpuscular Hemoglobin Concent 34.8 Red Cell Distribution Width 12.7 Platelet Count 180 Mean Platelet Volume 8.6 Neutrophils (%) (Auto) 68.9 Lymphocytes (%) (Auto) 19.1 Monocytes (%) (Auto) 9.5 Eosinophils (%) (Auto) 2.1 Basophils (%) (Auto) 0.4 Neutrophils # (Auto) 6.3 Lymphocytes # (Auto) 1.7 Monocytes # (Auto) 0.9 Eosinophils # (Auto) 0.2 Basophils # (Auto) 0.0 CBC Comment DIFF FINAL Differential Comment Prothrombin Time 10.7 Prothromb Time International Ratio 1.1 Blood Urea Nitrogen 15 Creatinine 0.96 Random Glucose 96 Total Protein 6.7 Albumin 3.2 Calcium Level 7.9 Phosphorus Level 2.5 Magnesium Level 1.9 Alkaline Phosphatase 38 Aspartate Amino Transf (AST/SGOT) 25 Alanine Aminotransferase (ALT/SGPT) 21 Total Bilirubin 0.7 Sodium Level 137 Potassium Level 3.7 Chloride Level 103 Carbon Dioxide Level 23.9 Anion Gap 10 Estimat Glomerular Filtration Rate 76 Triglycerides Level 115 Cholesterol Level 91 LDL Cholesterol 36 HDL Cholesterol 32.3 Cholesterol/HDL Ratio 2.81 Abhijit Cuevas MD PhD Dec 18, 2017 21:27
[2017-12-19] VITALS (28 sets, daily range): BP systolic 121–147; BP diastolic 62–80; PULSE 53–102; RESP 17–20; TEMP 97.8–98.4; O2SAT 92–98
[2017-12-19] MEDS: CHLORHEXIDINE GLUCONATE 2 % 1 PACK (2 CLOTHS) TOP SCH (02:33)
[2017-12-19] MEDS: RESP: ALBUTEROL 2.5 MG/IPRATROPIUM 0.5 MG NEB (SCH) INH ×4 (03:41→20:52)
[2017-12-19] MEDS ORDERED: EPINEPHrine HCL (1:10,000) 1 MG/10 ML SYRINGE ONE (04:50)
[2017-12-19] MEDS: ACETAMINOPHEN 325 MG TAB PO PRN (04:53)
[2017-12-19] MEDS ORDERED: DILTIAZEM HCL 50 MG/10 ML VIAL IV ONE (05:45)
--- NOTE | 2017-12-19 05:56 | RADRPT ---
EXAM DATE/TIME: 12/19/2017 05:03 [place] COMPARISON: CT BRAIN W/O CONTRAST, December 17, 2017, 5:35. INDICATIONS : Evaluate stroke. RADIATION DOSE: 63.64 CTDIvol (mGy) MEDICAL HISTORY : Stroke. Cardiovascular disease SURGICAL HISTORY : None. ENCOUNTER: Initial ACUITY: 1 day PAIN SCALE: 4/10 LOCATION: cranial TECHNIQUE: Multiple contiguous axial images were obtained of the head. Using automated exposure control and adj ustment of the mA and/or kV according to patient size, radiation dose was kept as low as reasonably a chievable to obtain optimal diagnostic quality images. DICOM format image data is available electro nically for review and comparison. FINDINGS: CEREBRUM: Area of low density again seen in the posterior temporal/occipital lobe. There is mass effect. The ve ntricles are normal for age. No evidence of midline shift, mass lesion or hemorrhage. No extra-axia l fluid collections are seen. POSTERIOR FOSSA: The cerebellum and brainstem are intact. The 4th ventricle is midline. The cerebellopontine angle i s unremarkable. EXTRACRANIAL: The visualized portion of the orbits is intact. SKULL: The calvaria is intact. No evidence of skull fracture. CONCLUSION: Stable infarcts left posterior temporal/occipital lobe. No midline shift. All Bueno MD on December 19, 2017 at 5:53 Board Certified Radiologist. This report was verified electronically.
[2017-12-19] MEDS: INSULIN ASPART SUPPLEMENTAL SCALE SQ SCH ×4 (07:53→21:00)
[2017-12-19] MEDS: DOCUSATE SODIUM 50 MG/SENNA 8.6 MG TAB PO SCH ×2 (08:34→21:00)
[2017-12-19] MEDS: ASPIRIN 81 MG CHEW TAB CHEW SCH (08:35)
[2017-12-19] MEDS: SODIUM CHLORIDE 0.9% FLUSH 10 ML FLUSH IV FLUSH SCH ×2 (08:35→21:57)
[2017-12-19] MEDS: FAMOTIDINE 20 MG TAB PO SCH ×2 (08:35→21:00)
--- NOTE | 2017-12-19 09:19 | HHI.PR ---
Subjective Remarks Nursing reports that the patient did have a headache last night. They underwent a stat CT which was unremarkable for any acute changes. Patient this morning says that his headache is still there, it is not photophobic or phonophobic in nature. says that his headache is similar to the one that he had on presentation. Patient describes the headache as pressure in the back of his head as if something is "swollen" there. Patient denies having any actual nausea or vomiting. Patient denies having a pre-existing history of headaches or migraines. Objective Vital Signs Date Time Temp Pulse Resp B/P (MAP) Pulse Ox O2 Delivery O2 Flow Rate FiO2 12/19/17 08:00 73 12/19/17 07:15 96 Room Air 12/19/17 07:15 91 12/19/17 07:15 98.4 63 20 132/80 (97) 96 12/19/17 06:04 102 12/19/17 05:59 101 12/19/17 04:28 97.8 66 19 121/62 (81) 95 12/19/17 04:28 68 12/19/17 03:03 66 12/19/17 02:32 53 12/19/17 01:13 63 12/19/17 00:38 61 12/19/17 00:20 98.0 70 18 146/79 (101) 94 12/18/17 23:00 68 12/18/17 22:30 69 12/18/17 21:11 91 21 12/18/17 21:00 72 12/18/17 20:20 98.2 75 17 140/83 (102) 95 12/18/17 20:15 70 12/18/17 19:20 67 12/18/17 19:20 95 Room Air 12/18/17 18:15 69 17 145/74 (97) 95 12/18/17 16:00 98.2 72 42 127/75 (92) 94 12/18/17 15:00 66 12/18/17 12:30 64 114/68 12/18/17 12:30 65 119/66 12/18/17 12:00 98.4 68 29 119/66 (83) 94 I/O 12/18/17 12/18/17 12/18/17 12/19/17 12/19/17 12/19/17 07:00 15:00 23:00 07:00 15:00 23:00 Intake Total 1212 ml 340 ml 360 ml Output Total 575 ml 950 ml Balance -575 ml 1212 ml -610 ml 360 ml Intake Oral 240 ml 360 ml IV Total 1212 ml 100 ml Output Urine Total 575 ml 950 ml # Voids 2 # Bowel Movements 0 1 1 Result Diagram: 12/18/1730912/18/17 031 Objective Remarks No facial droop, no slurred speech, extraocular motions intact, no tenderness to palpation over occiput or neck A/P Assessment and Plan Large ischemic infarct involving left occipital/temporoparietal region PT OT and ST Anticoagulants held due to size of stroke and risk of bleeding Past swallowing study, diet added neurology following Encephalopathy - resolved Headache CT head repeat is negative. Will start norco at this time and discuss with neurology further options for anti-inflammatory based treatment Atrial fibrillation Continue amiodarone Cardiology has signed off Elevated troponin Patient had normal heart catheterization without stent placement at his hospitalization at [facility] last Sunday Troponin elevation may have been stress related -cardiology has signed off Diabetes mellitus Accu-Cheks with sliding scale insulin coverage Diabetic diet Hyperlipidemia Continue lipitor DVT prophylaxis Anticoagulants held due to large area of stroke and risk of bleeding Gibson Doan MD Dec 19, 2017 09:19
[2017-12-19] MEDS ORDERED: ACETAMINOPHEN/HYDROcodone 325 MG/5 MG TAB PO PRN (09:30)
[2017-12-19] MEDS: ACETAMIN 325 MG/BUTALBITAL 50 MG/CAFFEINE 40 MG TAB PO PRN ×2 (14:38→22:03)
--- NOTE | 2017-12-19 15:45 | PD.CARD.PN ---
Subjective Subjective Remarks no events doing well Objective Medications Current Medications Medications (Trade) Dose Ordered Sig/Naomi Route Start Time Stop Time Status Last Admin (Lipitor) 40 mg HS PO 12/17/17 21:00 12/18/17 20:47 (Aspirin Chew) 81 mg DAILY CHEW 12/17/17 09:00 12/19/17 08:35 (Duoneb Neb) 1 ampule Q6HR NEB INH 12/17/17 10:00 12/18/17 21:11 (Duoneb Neb) 1 ampule Q4HR NEB PRN INH 12/17/17 07:30 Miscellaneous Information 1 Q361D XX 12/17/17 07:30 (Chlorhexidine 2% Cloth) 3 pack Taper DAILY@04 TOP 12/18/17 04:00 12/14/18 03:59 (Chlorhexidine 2% Cloth) 3 pack UNSCH PRN TOP 12/17/17 07:30 (Mariluz-Colace) 1 tab BID PO 12/17/17 09:00 12/19/17 08:34 (Milk Of Magnesia Liq) 30 ml Q12H PRN PO 12/17/17 07:30 (Senokot) 17.2 mg Q12H PRN PO 12/17/17 07:30 (Dulcolax Supp) 10 mg DAILY PRN RECTAL 12/17/17 07:30 (Lactulose Liq) 30 ml DAILY PRN PO 12/17/17 07:30 Potassium Chloride 100 ml @ 50 mls/hr Q2H PRN IV 12/17/17 07:45 Potassium Chloride 100 ml @ 50 mls/hr Q2H PRN IV 12/17/17 07:45 (K-Lyte Cl Eff) 50 meq UNSCH PRN PO 12/17/17 07:45 Potassium Chloride 100 ml @ 25 mls/hr UNSCH PRN IV 12/17/17 07:45 Potassium Chloride 100 ml @ 50 mls/hr Q2H PRN IV 12/17/17 07:45 Magnesium Sulfate 4 gm/Sodium Chloride 100 ml @ 50 mls/hr UNSCH PRN IV 12/17/17 07:45 (Mag-Ox) 800 mg UNSCH PRN PO 12/17/17 07:45 Magnesium Sulfate 2 gm/Sodium Chloride 100 ml @ 50 mls/hr UNSCH PRN IV 12/17/17 07:45 (K-Phos) 2,000 mg Q4H PRN PO 12/17/17 07:45 Sodium Phosphate 30 mmol/Sodium Chloride 250 ml @ 42 mls/hr UNSCH PRN IV 12/17/17 07:45 (K-Phos) 2,000 mg UNSCH PRN PO/TUBE 12/17/17 07:45 Potassium Phosphate 30 mmol/ Sodium Chloride 260 ml @ 42 mls/hr UNSCH PRN IV 12/17/17 07:45 (NS Flush) 2 ml BID IV FLUSH 12/17/17 21:00 12/19/17 08:35 (NS Flush) 2 ml UNSCH PRN IV FLUSH 12/17/17 16:00 (NovoLOG SUPPLEMENTAL SCALE) 1 ACHS SQ 12/17/17 17:00 (D50w (Vial) Inj) 50 ml UNSCH PRN IV PUSH 12/17/17 16:00 (Glucagon Inj) 1 mg UNSCH PRN OTHER 12/17/17 16:00 (Haldol Inj) 2 mg Q4HR PRN IV PUSH 12/17/17 17:15 12/17/17 18:03 (Mag-Al Plus Susp Liq) 30 ml Q6H PRN PO 12/17/17 19:45 (Habitrol 21 Mg Patch.24 Hr) 1 patch DAILY PRN T-DERMAL 12/17/17 19:45 Miscellaneous Information 1 HS PRN T-DERMAL 12/17/17 19:45 (Pepcid) 20 mg BID PO 12/18/17 09:00 12/19/17 08:35 Amiodarone HCl 450 mg/Sodium Chloride 259 ml @ 33.33 mls/ hr Q7H47M PRN IV 12/18/17 11:45 12/18/17 12:30 (Fioricet 325-50-40) 1 tab Q8H PRN PO 12/19/17 13:15 12/19/17 14:38 Vital Signs / I&O Vital Signs Date Time Temp Pulse Resp B/P (MAP) Pulse Ox O2 Delivery O2 Flow Rate FiO2 12/19/17 15:00 98.1 61 20 141/68 (92) 98 12/19/17 15:00 60 12/19/17 14:00 68 12/19/17 13:00 62 12/19/17 12:00 60 12/19/17 11:00 60 12/19/17 11:00 97.9 79 20 132/80 (97) 95 12/19/17 10:00 60 12/19/17 09:30 96 12/19/17 09:00 68 12/19/17 08:00 73 12/19/17 07:15 96 Room Air 12/19/17 07:15 91 12/19/17 07:15 98.4 63 20 132/80 (97) 96 12/19/17 06:04 102 12/19/17 05:59 101 12/19/17 04:28 97.8 66 19 121/62 (81) 95 12/19/17 04:28 68 12/19/17 03:03 66 12/19/17 02:32 53 12/19/17 01:13 63 12/19/17 00:38 61 12/19/17 00:20 98.0 70 18 146/79 (101) 94 12/18/17 23:00 68 12/18/17 22:30 69 12/18/17 21:11 91 21 12/18/17 21:00 72 12/18/17 20:20 98.2 75 17 140/83 (102) 95 12/18/17 20:15 70 12/18/17 19:20 67 12/18/17 19:20 95 Room Air 12/18/17 18:15 69 17 145/74 (97) 95 12/18/17 16:00 98.2 72 42 127/75 (92) 94 I/O 12/18/17 12/18/17 12/18/17 12/19/17 12/19/17 12/19/17 07:00 15:00 23:00 07:00 15:00 23:00 Intake Total 1212 ml 340 ml 360 ml Output Total 575 ml 950 ml Balance -575 ml 1212 ml -610 ml 360 ml Intake Oral 240 ml 360 ml IV Total 1212 ml 100 ml Output Urine Total 575 ml 950 ml # Voids 2 # Bowel Movements 0 1 1 Physical Exam GENERAL: SKIN: Warm and dry. HEAD: Normocephalic. EYES: No scleral icterus. No injection or drainage. NECK: Supple, trachea midline. No JVD or lymphadenopathy. CARDIOVASCULAR: Regular rate and rhythm without murmurs, gallops, or rubs. RESPIRATORY: Breath sounds equal bilaterally. No accessory muscle use. GASTROINTESTINAL: Abdomen soft, non-tender, nondistended. MUSCULOSKELETAL: No cyanosis, or edema. BACK: Nontender without obvious deformity. No CVA tenderness. Laboratory Last Impressions Head CT 12/19/17599 Signed Impressions: Service Date/Time: Tuesday, December 19, 2017 05:03 - CONCLUSION: Stable infarcts left posterior temporal/occipital lobe. No midline shift. All Bueno MD Chest X-Ray 12/18/17 0000 Signed Impressions: Service Date/Time: Monday, December 18, 2017 04:29 - CONCLUSION: Stable chest. All Bueno MD Brain MRI 12/17/1742 Signed Impressions: Service Date/Time: Sunday, December 17, 2017 09:23 - CONCLUSION: 1. The abnormality on CT corresponds to a large area of acute to subacute infarction. 2. No evidence of underlying mass or hemorrhage. Guanakito Thomas MD Head Magnetic Resonance Angiography 12/17/1733 Signed Impressions: Service Date/Time: Sunday, December 17, 2017 09:23 - CONCLUSION: Occluded branches of left EMERGENCY DEPT TECH. Hypoplastic left A1. Mario Robertson MD Neck Magnetic Resonance Angiography 12/17/17 0000 Signed Impressions: Service Date/Time: Sunday, December 17, 2017 09:23 - CONCLUSION: No evidence of carotid stenosis Mario Robertson MD Imaging Last [address] 12/19/17599 Signed Impressions: Service Date/Time: Tuesday, December 19, 2017 05:03 - CONCLUSION: Stable infarcts left posterior temporal/occipital lobe. No midline shift. All Bueno MD Assessment and Plan Problem List: (1) Elevated troponin ICD Codes: R74.8 - Abnormal levels of other serum enzymes Status: Acute (2) Ischemic stroke ICD Codes: I63.9 - Cerebral infarction, unspecified Status: Acute (3) Atrial fibrillation with RVR ICD Codes: I48.91 - Unspecified atrial fibrillation Status: Acute Assessment and Plan CAD CABG - [facility] "no change" compared to prior. obvious patient has CAD with prior CABG, but unclear if all grafts still patent. Regardless, it was decided medical therapy was most appropriate. NSTEMI - no plan for invasive strategy given recent cardiac catheterization and recent stroke with contraindication for anticoagulation at this time. CVA -etiology either atheroembolic during cardiac catheterization versus thromboembolic secondary to newly diagnosed atrial fibrillation. DC amio gtt start amio PO start anticoagulation ok for DC from cardio standoint Torin Campbell MD Dec 19, 2017 15:45
--- NOTE | 2017-12-19 16:23 | HHI.PR ---
Review/Management Diagnosis left posterior parieto occipital cva atrial fibrillation Plan repeat CT brain and consider anticoagulation if stable Diagnosis/Plan: Subjective Subjective Comments No acute events reported Has headache in occipital region Noted difficulty comprehending Active Medications Current Medications Medications (Trade) Dose Ordered Sig/Naomi Route Start Time Stop Time Status Last Admin (Lipitor) 40 mg HS PO 12/17/17 21:00 12/18/17 20:47 (Aspirin Chew) 81 mg DAILY CHEW 12/17/17 09:00 12/19/17 08:35 (Duoneb Neb) 1 ampule Q6HR NEB INH 12/17/17 10:00 12/18/17 21:11 (Duoneb Neb) 1 ampule Q4HR NEB PRN INH 12/17/17 07:30 Miscellaneous Information 1 Q361D XX 12/17/17 07:30 (Chlorhexidine 2% Cloth) 3 pack Taper DAILY@04 TOP 12/18/17 04:00 12/14/18 03:59 (Chlorhexidine 2% Cloth) 3 pack UNSCH PRN TOP 12/17/17 07:30 (Mariluz-Colace) 1 tab BID PO 12/17/17 09:00 12/19/17 08:34 (Milk Of Magnesia Liq) 30 ml Q12H PRN PO 12/17/17 07:30 (Senokot) 17.2 mg Q12H PRN PO 12/17/17 07:30 (Dulcolax Supp) 10 mg DAILY PRN RECTAL 12/17/17 07:30 (Lactulose Liq) 30 ml DAILY PRN PO 12/17/17 07:30 Potassium Chloride 100 ml @ 50 mls/hr Q2H PRN IV 12/17/17 07:45 Potassium Chloride 100 ml @ 50 mls/hr Q2H PRN IV 12/17/17 07:45 (K-Lyte Cl Eff) 50 meq UNSCH PRN PO 12/17/17 07:45 Potassium Chloride 100 ml @ 25 mls/hr UNSCH PRN IV 12/17/17 07:45 Potassium Chloride 100 ml @ 50 mls/hr Q2H PRN IV 12/17/17 07:45 Magnesium Sulfate 4 gm/Sodium Chloride 100 ml @ 50 mls/hr UNSCH PRN IV 12/17/17 07:45 (Mag-Ox) 800 mg UNSCH PRN PO 12/17/17 07:45 Magnesium Sulfate 2 gm/Sodium Chloride 100 ml @ 50 mls/hr UNSCH PRN IV 12/17/17 07:45 (K-Phos) 2,000 mg Q4H PRN PO 12/17/17 07:45 Sodium Phosphate 30 mmol/Sodium Chloride 250 ml @ 42 mls/hr UNSCH PRN IV 12/17/17 07:45 (K-Phos) 2,000 mg UNSCH PRN PO/TUBE 12/17/17 07:45 Potassium Phosphate 30 mmol/ Sodium Chloride 260 ml @ 42 mls/hr UNSCH PRN IV 12/17/17 07:45 (NS Flush) 2 ml BID IV FLUSH 12/17/17 21:00 12/19/17 08:35 (NS Flush) 2 ml UNSCH PRN IV FLUSH 12/17/17 16:00 (NovoLOG SUPPLEMENTAL SCALE) 1 ACHS SQ 12/17/17 17:00 (D50w (Vial) Inj) 50 ml UNSCH PRN IV PUSH 12/17/17 16:00 (Glucagon Inj) 1 mg UNSCH PRN OTHER 12/17/17 16:00 (Haldol Inj) 2 mg Q4HR PRN IV PUSH 12/17/17 17:15 12/17/17 18:03 (Mag-Al Plus Susp Liq) 30 ml Q6H PRN PO 12/17/17 19:45 (Habitrol 21 Mg Patch.24 Hr) 1 patch DAILY PRN T-DERMAL 12/17/17 19:45 Miscellaneous Information 1 HS PRN T-DERMAL 12/17/17 19:45 (Pepcid) 20 mg BID PO 12/18/17 09:00 12/19/17 08:35 (Fioricet 325-50-40) 1 tab Q8H PRN PO 12/19/17 13:15 12/19/17 14:38 (Cordarone) 200 mg DAILY PO 12/20/17 09:00 Allergies Allergies Coded Allergies No Known Allergies (Unverified12/17/17) Exam I&O / VS Vital Signs Date Time Temp Pulse Resp B/P (MAP) Pulse Ox O2 Delivery O2 Flow Rate FiO2 12/19/17 16:00 58 12/19/17 15:00 98.1 61 20 141/68 (92) 98 12/19/17 15:00 60 12/19/17 14:00 68 12/19/17 13:00 62 12/19/17 12:00 60 12/19/17 11:00 60 12/19/17 11:00 97.9 79 20 132/80 (97) 95 12/19/17 10:00 60 12/19/17 09:30 96 12/19/17 09:00 68 12/19/17 08:00 73 12/19/17 07:15 96 Room Air 12/19/17 07:15 91 12/19/17 07:15 98.4 63 20 132/80 (97) 96 12/19/17 06:04 102 12/19/17 05:59 101 12/19/17 04:28 97.8 66 19 121/62 (81) 95 12/19/17 04:28 68 12/19/17 03:03 66 12/19/17 02:32 53 12/19/17 01:13 63 12/19/17 00:38 61 12/19/17 00:20 98.0 70 18 146/79 (101) 94 12/18/17 23:00 68 12/18/17 22:30 69 12/18/17 21:11 91 21 12/18/17 21:00 72 12/18/17 20:20 98.2 75 17 140/83 (102) 95 12/18/17 20:15 70 12/18/17 19:20 67 12/18/17 19:20 95 Room Air 12/18/17 18:15 69 17 145/74 (97) 95 Exam Comments alert, speech dysarthric, diminished comprehensiin and anomia CN intact MOTOR 5/5 BUE and BLE Objective Radiology Results CT brain--stable left hemisphere cva with no hemorrhage Abhijit Cuevas MD PhD Dec 19, 2017 16:23
[2017-12-19 20:37] LABS: HEMOGLOBIN A1C 6.7 % (4.3-6.0)
[2017-12-19] MEDS: ATORVASTATIN 40 MG TAB PO SCH (21:56)
--- NOTE | 2017-12-19 22:15 | EKG ---
Date Performed: 12/19/2017 Time Performed: 05:31:42 PTAGE: 77 years EKG: Atrial fibrillation with rapid ventricular response with PVC(s) or aberrant ventricular con duction. Possible left ventricular hypertrophy Extensive ST-T changes are probably due to ventricular hypertrophy Abnormal ECG Since the PREVIOUS TRACING , no significant change noted DOCTOR: Fercho Rahman Interpretating Date/Time 12/19/2017 22:14:49
[2017-12-20] VITALS (26 sets, daily range): BP systolic 116–161; BP diastolic 77–87; PULSE 58–85; RESP 16–20; TEMP 98–99.2; O2SAT 93–98
[2017-12-20] MEDS ORDERED: traMADol HCL 50 MG TAB PO ONE (03:45)
[2017-12-20] MEDS: RESP: ALBUTEROL 2.5 MG/IPRATROPIUM 0.5 MG NEB (SCH) INH ×4 (04:00→21:30)
[2017-12-20] MEDS: CHLORHEXIDINE GLUCONATE 2 % 1 PACK (2 CLOTHS) TOP SCH (04:00)
[2017-12-20] MEDS: INSULIN ASPART SUPPLEMENTAL SCALE SQ SCH ×4 (08:00→21:53)
[2017-12-20] MEDS: FAMOTIDINE 20 MG TAB PO SCH ×2 (08:17→20:56)
[2017-12-20] MEDS: DOCUSATE SODIUM 50 MG/SENNA 8.6 MG TAB PO SCH ×2 (08:18→20:57)
[2017-12-20] MEDS: SODIUM CHLORIDE 0.9% FLUSH 10 ML FLUSH IV FLUSH SCH ×2 (08:18→20:56)
[2017-12-20] MEDS: ACETAMIN 325 MG/BUTALBITAL 50 MG/CAFFEINE 40 MG TAB PO PRN ×2 (08:18→16:33)
[2017-12-20] MEDS: AMIODARONE 200 MG TAB PO SCH (08:18)
[2017-12-20] MEDS: ASPIRIN 81 MG CHEW TAB CHEW SCH (08:18)
--- NOTE | 2017-12-20 09:52 | HHI.PR ---
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 Otherwise pt has no n/v. He is very frustrated about having memory difficulties. Son is saying that the patient is in the middle of moving and closing house. Patient states that he has been able to walk without any assistive devices just fine. Objective Vital Signs Date Time Temp Pulse Resp B/P (MAP) Pulse Ox O2 Delivery O2 Flow Rate FiO2 12/20/17 09:00 151/87 (108) 12/20/17 09:00 64 12/20/17 08:00 70 12/20/17 07:30 96 Room Air 12/20/17 07:30 98.0 85 20 116/86 (96) 96 12/20/17 07:30 73 12/20/17 06:24 65 12/20/17 05:04 72 12/20/17 04:35 70 12/20/17 03:22 71 12/20/17 03:12 99.2 70 17 160/83 (108) 93 12/20/17 02:34 84 12/20/17 01:24 74 12/20/17 00:20 59 12/19/17 23:35 98.2 70 17 147/71 (96) 94 12/19/17 23:00 70 12/19/17 22:35 72 12/19/17 21:00 68 12/19/17 20:55 92 21 12/19/17 20:15 72 12/19/17 19:54 95 Room Air 12/19/17 19:49 98.4 72 18 147/78 (101) 95 12/19/17 19:49 69 12/19/17 18:00 69 12/19/17 17:00 58 12/19/17 16:00 58 12/19/17 15:00 98.1 61 20 141/68 (92) 98 12/19/17 15:00 60 12/19/17 14:00 68 12/19/17 13:00 62 12/19/17 12:00 60 12/19/17 11:00 60 12/19/17 11:00 97.9 79 20 132/80 (97) 95 12/19/17 10:00 60 I/O 12/19/17 12/19/17 12/19/17 12/20/17 12/20/17 12/20/17 07:00 15:00 23:00 07:00 15:00 23:00 Intake Total 360 ml 720 ml 360 ml Output Total 500 ml 200 ml Balance 360 ml 220 ml 160 ml Intake Oral 360 ml 720 ml 360 ml Output Urine Total 500 ml 200 ml # Voids 2 1 2 # Bowel Movements 1 1 Result Diagram: 12/18/1730912/18/17309 Objective Remarks No facial droop, no slurred speech, extraocular motions intact, no tenderness to palpation over occiput or neck Alert and oriented 3, no facial droop, no slurred speech, pupils equal and round and reactive bilaterally, 5 out of 5 proximal upper extremity strength including for prescription. A/P Assessment and Plan Large ischemic infarct involving left occipital/temporoparietal region PT OT and ST We will start anticoagulation today; CT head was done yesterday, no need for repeat head CT today per neurology neurology following; Headache Improved, continue Fioricet Atrial fibrillation Transitioned to p.o. amiodarone Diabetes mellitus Accu-Cheks with sliding scale insulin coverage Diabetic diet Hyperlipidemia Continue lipitor DVT prophylaxis Starting anticoagulated today Discharge Planning Monitor for any signs of intracranial pressure after starting to coagulation today for another 24 hours and expect discharge with home care tomorrow. Gibson Doan MD Dec 20, 2017 09:52
--- NOTE | 2017-12-20 09:54 | HHI.FF ---
Face to Face Verification Diagnosis: (1) Ischemic stroke (2) Expressive aphasia Speech Therapy Order: To Improve: Speech and communication skills Home Health Nursing Order: Medical education Signs/symptoms of disease process Nursing assessment with vital signs I have seen patient Abhijit Amaya on 12/20/17. My clinical findings support the need for the requested home health care services because: Limited ability to care for self Need for psychosocial assistance I certify that my clinical findings support that this patient is homebound because: Unsafe to leave home unassisted Need for psychosocial assistance Gibson Doan MD Dec 20, 2017 09:54
[2017-12-20] MEDS: APIXABAN 5 MG TABLET PO SCH ×2 (11:47→20:56)
--- NOTE | 2017-12-20 18:12 | HHI.PR ---
Review/Management Diagnosis left posterior parieto occipital cva atrial fibrillation Plan I agree with flaco Howell to discharge from neuro standpoint tomorrow if stable. Please schedule follow up with me outpatient in 2-3 weeks Diagnosis/Plan: Subjective Subjective Comments No acute events reported Active Medications Current Medications Medications (Trade) Dose Ordered Sig/Naomi Route Start Time Stop Time Status Last Admin (Lipitor) 40 mg HS PO 12/17/17 21:00 12/19/17 21:56 (Aspirin Chew) 81 mg DAILY CHEW 12/17/17 09:00 12/20/17 08:18 (Duoneb Neb) 1 ampule Q6HR NEB INH 12/17/17 10:00 12/20/17 10:16 (Duoneb Neb) 1 ampule Q4HR NEB PRN INH 12/17/17 07:30 Miscellaneous Information 1 Q361D XX 12/17/17 07:30 (Chlorhexidine 2% Cloth) 3 pack Taper DAILY@04 TOP 12/18/17 04:00 12/14/18 03:59 (Chlorhexidine 2% Cloth) 3 pack UNSCH PRN TOP 12/17/17 07:30 (Mariluz-Colace) 1 tab BID PO 12/17/17 09:00 12/19/17 08:34 (Milk Of Magnesia Liq) 30 ml Q12H PRN PO 12/17/17 07:30 (Senokot) 17.2 mg Q12H PRN PO 12/17/17 07:30 (Dulcolax Supp) 10 mg DAILY PRN RECTAL 12/17/17 07:30 (Lactulose Liq) 30 ml DAILY PRN PO 12/17/17 07:30 Potassium Chloride 100 ml @ 50 mls/hr Q2H PRN IV 12/17/17 07:45 Potassium Chloride 100 ml @ 50 mls/hr Q2H PRN IV 12/17/17 07:45 (K-Lyte Cl Eff) 50 meq UNSCH PRN PO 12/17/17 07:45 Potassium Chloride 100 ml @ 25 mls/hr UNSCH PRN IV 12/17/17 07:45 Potassium Chloride 100 ml @ 50 mls/hr Q2H PRN IV 12/17/17 07:45 Magnesium Sulfate 4 gm/Sodium Chloride 100 ml @ 50 mls/hr UNSCH PRN IV 12/17/17 07:45 (Mag-Ox) 800 mg UNSCH PRN PO 12/17/17 07:45 Magnesium Sulfate 2 gm/Sodium Chloride 100 ml @ 50 mls/hr UNSCH PRN IV 12/17/17 07:45 (K-Phos) 2,000 mg Q4H PRN PO 12/17/17 07:45 Sodium Phosphate 30 mmol/Sodium Chloride 250 ml @ 42 mls/hr UNSCH PRN IV 12/17/17 07:45 (K-Phos) 2,000 mg UNSCH PRN PO/TUBE 12/17/17 07:45 Potassium Phosphate 30 mmol/ Sodium Chloride 260 ml @ 42 mls/hr UNSCH PRN IV 12/17/17 07:45 (NS Flush) 2 ml BID IV FLUSH 12/17/17 21:00 12/20/17 08:18 (NS Flush) 2 ml UNSCH PRN IV FLUSH 12/17/17 16:00 (NovoLOG SUPPLEMENTAL SCALE) 1 ACHS SQ 12/17/17 17:00 12/19/17 21:00 (D50w (Vial) Inj) 50 ml UNSCH PRN IV PUSH 12/17/17 16:00 (Glucagon Inj) 1 mg UNSCH PRN OTHER 12/17/17 16:00 (Haldol Inj) 2 mg Q4HR PRN IV PUSH 12/17/17 17:15 12/17/17 18:03 (Mag-Al Plus Susp Liq) 30 ml Q6H PRN PO 12/17/17 19:45 (Habitrol 21 Mg Patch.24 Hr) 1 patch DAILY PRN T-DERMAL 12/17/17 19:45 Miscellaneous Information 1 HS PRN T-DERMAL 12/17/17 19:45 (Pepcid) 20 mg BID PO 12/18/17 09:00 12/20/17 08:17 (Fioricet 325-50-40) 1 tab Q8H PRN PO 12/19/17 13:15 12/20/17 16:33 (Cordarone) 200 mg DAILY PO 12/20/17 09:00 12/20/17 08:18 (Eliquis) 5 mg BID PO 12/20/17 10:15 12/20/17 11:47 Allergies Allergies Coded Allergies No Known Allergies (Unverified12/17/17) Exam I&O / VS 12/20/17 12/20/17 12/21/17 15:00 23:00 07:00 Intake Total 720 ml Output Total 600 ml Balance 120 ml Intake Oral 720 ml Output Urine Total 600 ml # Bowel Movements 0 Vital Signs Date Time Temp Pulse Resp B/P (MAP) Pulse Ox O2 Delivery O2 Flow Rate FiO2 12/20/17 17:00 74 12/20/17 16:00 70 12/20/17 15:00 69 12/20/17 15:00 98.0 69 20 154/77 (102) 95 12/20/17 14:00 69 12/20/17 13:00 66 12/20/17 12:00 62 12/20/17 11:00 58 12/20/17 11:00 98.9 60 20 154/81 (105) 98 12/20/17 10:16 96 21 12/20/17 10:00 65 12/20/17 09:00 151/87 (108) 12/20/17 09:00 64 12/20/17 08:00 70 12/20/17 07:30 96 Room Air 12/20/17 07:30 98.0 85 20 161/86 (111) 96 12/20/17 07:30 73 12/20/17 06:24 65 12/20/17 05:04 72 12/20/17 04:35 70 12/20/17 03:22 71 12/20/17 03:12 99.2 70 17 160/83 (108) 93 12/20/17 02:34 84 12/20/17 01:24 74 12/20/17 00:20 59 12/19/17 23:35 98.2 70 17 147/71 (96) 94 12/19/17 23:00 70 12/19/17 22:35 72 12/19/17 21:00 68 12/19/17 20:55 92 21 12/19/17 20:15 72 12/19/17 19:54 95 Room Air 12/19/17 19:49 98.4 72 18 147/78 (101) 95 12/19/17 19:49 69 Exam Comments alert, speech dysarthric, diminished comprehensiin and anomia CN intact MOTOR 5/5 BUNarda and Abhijit Pfeiffer MD PhD Dec 20, 2017 18:12
[2017-12-20] MEDS ORDERED: NAPROXEN 500 MG TAB PO ONE (18:30)
[2017-12-20] MEDS: ATORVASTATIN 40 MG TAB PO SCH (20:56)
[2017-12-20] MEDS ORDERED: LORazepam 1 MG TAB PO ONE (21:15)
[2017-12-21] VITALS (20 sets, daily range): BP systolic 85–153; BP diastolic 69–83; PULSE 64–137; RESP 18; TEMP 98–99; O2SAT 94–96
[2017-12-21] MEDS: RESP: ALBUTEROL 2.5 MG/IPRATROPIUM 0.5 MG NEB (SCH) INH ×2 (02:52→09:19)
[2017-12-21] MEDS: CHLORHEXIDINE GLUCONATE 2 % 1 PACK (2 CLOTHS) TOP SCH (04:00)
[2017-12-21] MEDS: AMIODARONE 200 MG TAB PO SCH (05:44)
[2017-12-21] MEDS: ACETAMIN 325 MG/BUTALBITAL 50 MG/CAFFEINE 40 MG TAB PO PRN ×2 (07:45→17:46)
[2017-12-21] MEDS: INSULIN ASPART SUPPLEMENTAL SCALE SQ SCH ×4 (08:00→21:00)
[2017-12-21] MEDS: ASPIRIN 81 MG CHEW TAB CHEW SCH (09:50)
[2017-12-21] MEDS: FAMOTIDINE 20 MG TAB PO SCH ×2 (09:50→21:42)
[2017-12-21] MEDS: APIXABAN 5 MG TABLET PO SCH ×2 (09:50→21:43)
[2017-12-21] MEDS: SODIUM CHLORIDE 0.9% FLUSH 10 ML FLUSH IV FLUSH SCH ×2 (09:51→21:43)
[2017-12-21] MEDS: DOCUSATE SODIUM 50 MG/SENNA 8.6 MG TAB PO SCH ×2 (09:51→21:42)
[2017-12-21] MEDS ORDERED: CARVEDILOL 3.125 MG TAB PO SCH (10:00)
[2017-12-21] MEDS ORDERED: amLODIPine BESYLATE 5 MG TAB PO SCH (10:00)
--- NOTE | 2017-12-21 10:39 | PD.CARD.PN ---
Subjective Subjective Remarks afib RVR today Objective Medications Current Medications Medications (Trade) Dose Ordered Sig/Naomi Route Start Time Stop Time Status Last Admin (Lipitor) 40 mg HS PO 12/17/17 21:00 12/20/17 20:56 (Aspirin Chew) 81 mg DAILY CHEW 12/17/17 09:00 12/21/17 09:50 (Duoneb Neb) 1 ampule Q4HR NEB PRN INH 12/17/17 07:30 Miscellaneous Information 1 Q361D XX 12/17/17 07:30 (Chlorhexidine 2% Cloth) 3 pack Taper DAILY@04 TOP 12/18/17 04:00 12/14/18 03:59 (Chlorhexidine 2% Cloth) 3 pack UNSCH PRN TOP 12/17/17 07:30 (Mariluz-Colace) 1 tab BID PO 12/17/17 09:00 12/21/17 09:51 (Milk Of Magnesia Liq) 30 ml Q12H PRN PO 12/17/17 07:30 (Senokot) 17.2 mg Q12H PRN PO 12/17/17 07:30 (Dulcolax Supp) 10 mg DAILY PRN RECTAL 12/17/17 07:30 (Lactulose Liq) 30 ml DAILY PRN PO 12/17/17 07:30 Potassium Chloride 100 ml @ 50 mls/hr Q2H PRN IV 12/17/17 07:45 Potassium Chloride 100 ml @ 50 mls/hr Q2H PRN IV 12/17/17 07:45 (K-Lyte Cl Eff) 50 meq UNSCH PRN PO 12/17/17 07:45 Potassium Chloride 100 ml @ 25 mls/hr UNSCH PRN IV 12/17/17 07:45 Potassium Chloride 100 ml @ 50 mls/hr Q2H PRN IV 12/17/17 07:45 Magnesium Sulfate 4 gm/Sodium Chloride 100 ml @ 50 mls/hr UNSCH PRN IV 12/17/17 07:45 (Mag-Ox) 800 mg UNSCH PRN PO 12/17/17 07:45 Magnesium Sulfate 2 gm/Sodium Chloride 100 ml @ 50 mls/hr UNSCH PRN IV 12/17/17 07:45 (K-Phos) 2,000 mg Q4H PRN PO 12/17/17 07:45 Sodium Phosphate 30 mmol/Sodium Chloride 250 ml @ 42 mls/hr UNSCH PRN IV 12/17/17 07:45 (K-Phos) 2,000 mg UNSCH PRN PO/TUBE 12/17/17 07:45 Potassium Phosphate 30 mmol/ Sodium Chloride 260 ml @ 42 mls/hr UNSCH PRN IV 12/17/17 07:45 (NS Flush) 2 ml BID IV FLUSH 12/17/17 21:00 12/21/17 09:51 (NS Flush) 2 ml UNSCH PRN IV FLUSH 12/17/17 16:00 (NovoLOG SUPPLEMENTAL SCALE) 1 ACHS SQ 12/17/17 17:00 12/20/17 21:53 (D50w (Vial) Inj) 50 ml UNSCH PRN IV PUSH 12/17/17 16:00 (Glucagon Inj) 1 mg UNSCH PRN OTHER 12/17/17 16:00 (Haldol Inj) 2 mg Q4HR PRN IV PUSH 12/17/17 17:15 12/17/17 18:03 (Mag-Al Plus Susp Liq) 30 ml Q6H PRN PO 12/17/17 19:45 (Habitrol 21 Mg Patch.24 Hr) 1 patch DAILY PRN T-DERMAL 12/17/17 19:45 Miscellaneous Information 1 HS PRN T-DERMAL 12/17/17 19:45 (Pepcid) 20 mg BID PO 12/18/17 09:00 12/21/17 09:50 (Fioricet 325-50-40) 1 tab Q8H PRN PO 12/19/17 13:15 12/21/17 07:45 (Cordarone) 200 mg DAILY PO 12/20/17 09:00 12/21/17 05:44 (Eliquis) 5 mg BID PO 12/20/17 10:15 12/21/17 09:50 (Coreg) 3.125 mg BID PO 12/21/17 10:00 (Norvasc) 5 mg DAILY PO 12/21/17 10:00 (Lanoxin Inj) 0.5 mg ONCE ONCE IV PUSH 12/21/17 10:45 12/21/17 10:46 UNV (Lanoxin) 0.25 mg DAILY PO 12/22/17 09:00 UNV Vital Signs / I&O Vital Signs Date Time Temp Pulse Resp B/P (MAP) Pulse Ox O2 Delivery O2 Flow Rate FiO2 12/21/17 09:20 94 21 12/21/17 08:00 104 12/21/17 08:00 95 Room Air 12/21/17 08:00 98.8 104 18 85/69 (74) 95 12/21/17 07:00 123 12/21/17 06:00 132 12/21/17 05:00 136 12/21/17 04:00 70 12/21/17 03:00 73 12/21/17 03:00 99.0 70 18 153/79 (103) 96 12/21/17 02:00 67 12/21/17 01:00 69 12/21/17 00:00 66 12/20/17 23:00 98.2 70 16 140/81 (100) 95 12/20/17 23:00 73 12/20/17 22:00 78 12/20/17 21:31 21 12/20/17 21:00 72 12/20/17 20:00 70 12/20/17 19:34 18 12/20/17 19:00 99.0 71 20 146/87 (106) 96 12/20/17 19:00 76 12/20/17 19:00 96 Room Air 12/20/17 18:00 71 12/20/17 17:00 74 12/20/17 16:00 70 12/20/17 15:00 69 12/20/17 15:00 98.0 69 20 154/77 (102) 95 12/20/17 14:00 69 12/20/17 13:00 66 12/20/17 12:00 62 12/20/17 11:00 58 12/20/17 11:00 98.9 60 20 154/81 (105) 98 I/O 12/20/17 12/20/17 12/20/17 12/21/17 12/21/17 12/21/17 07:00 15:00 23:00 07:00 15:00 23:00 Intake Total 360 ml 720 ml 240 ml Output Total 200 ml 600 ml 700 ml Balance 160 ml 120 ml -460 ml Intake Oral 360 ml 720 ml 240 ml Output Urine Total 200 ml 600 ml 700 ml # Voids 2 # Bowel Movements 0 0 Physical Exam GENERAL: SKIN: Warm and dry. HEAD: Normocephalic. EYES: No scleral icterus. No injection or drainage. NECK: Supple, trachea midline. No JVD or lymphadenopathy. CARDIOVASCULAR: Regular rate and rhythm without murmurs, gallops, or rubs. RESPIRATORY: Breath sounds equal bilaterally. No accessory muscle use. GASTROINTESTINAL: Abdomen soft, non-tender, nondistended. MUSCULOSKELETAL: No cyanosis, or edema. BACK: Nontender without obvious deformity. No CVA tenderness. Assessment and Plan Problem List: (1) Elevated troponin ICD Codes: R74.8 - Abnormal levels of other serum enzymes Status: Acute (2) Ischemic stroke ICD Codes: I63.9 - Cerebral infarction, unspecified Status: Acute (3) Atrial fibrillation with RVR ICD Codes: I48.91 - Unspecified atrial fibrillation Status: Acute Assessment and Plan Afib RVR - low BP. DC amlodipine. DC Coreg. Add cardizem 30 mg PO q6 with parameters. Add digoxin. Follow dig level continue amio PO continue anticoagulation Torin Campbell MD Dec 21, 2017 10:39
[2017-12-21] MEDS ORDERED: DIGOXIN 0.5 MG/2 ML VIAL IV PUSH ONE (10:45)
--- NOTE | 2017-12-21 11:31 | EKG ---
Date Performed: 12/21/2017 Time Performed: 05:30:28 PTAGE: 77 years EKG: Atrial fibrillation with rapid ventricular response Inferior infarct - age undetermined Segundo l R V1/V2 probably reflect the infarct Ant/septal and lateral ST-T changes may be due to myocardial i schemia Abnormal ECG PREVIOUS TRACING : 12/19/2017 05.31 Since the previous tracing, no significant change noted DOCTOR: Rocky Cruz Interpretating Date/Time 12/21/2017 11:27:21
[2017-12-21] MEDS: DILTIAZEM HCL 30 MG TAB PO SCH ×2 (12:39→17:43)
[2017-12-21] MEDS ORDERED: SODIUM CHLOR 0.9% 250 ML INJ 250 ML IV ONE (12:45)
--- NOTE | 2017-12-21 15:47 | HHI.PR ---
Subjective Remarks Nursing reports the patient is again complaining of head and shoulder pain. He was also noted to get tachycardic. An EKG was obtained which I have been reviewed and showed some A. fib with RVR. Heart rate was up to the 130s at one point. Objective Vital Signs Date Time Temp Pulse Resp B/P (MAP) Pulse Ox O2 Delivery O2 Flow Rate FiO2 12/21/17 14:00 104 12/21/17 13:00 93 12/21/17 12:00 137 12/21/17 12:00 98.8 137 18 132/76 (94) 94 12/21/17 11:00 114 12/21/17 10:00 135 12/21/17 09:20 94 21 12/21/17 09:00 125 12/21/17 08:00 104 12/21/17 08:00 95 Room Air 12/21/17 08:00 98.8 104 18 85/69 (74) 95 12/21/17 07:00 123 12/21/17 06:00 132 12/21/17 05:00 136 12/21/17 04:00 70 12/21/17 03:00 73 12/21/17 03:00 99.0 70 18 153/79 (103) 96 12/21/17 02:00 67 12/21/17 01:00 69 12/21/17 00:00 66 12/20/17 23:00 98.2 70 16 140/81 (100) 95 12/20/17 23:00 73 12/20/17 22:00 78 12/20/17 21:31 21 12/20/17 21:00 72 12/20/17 20:00 70 12/20/17 19:34 18 12/20/17 19:00 99.0 71 20 146/87 (106) 96 12/20/17 19:00 76 12/20/17 19:00 96 Room Air 12/20/17 18:00 71 12/20/17 17:00 74 12/20/17 16:00 70 I/O 12/20/17 12/20/17 12/20/17 12/21/17 12/21/17 12/21/17 07:00 15:00 23:00 07:00 15:00 23:00 Intake Total 360 ml 720 ml 240 ml Output Total 200 ml 600 ml 700 ml Balance 160 ml 120 ml -460 ml Intake Oral 360 ml 720 ml 240 ml Output Urine Total 200 ml 600 ml 700 ml # Voids 2 # Bowel Movements 0 0 Result Diagram: 12/18/1730912/18/17309 Objective Remarks No facial droop, no slurred speech, extraocular motions intact, no tenderness to palpation over occiput or neck Alert and oriented 3, no facial droop, no slurred speech, pupils equal and round and reactive bilaterally, 5 out of 5 proximal upper extremity strength including for prescription. Is very tender bilateral shoulder blades and occiput, muscles appear to be rather tense A/P Assessment and Plan Large ischemic infarct involving left occipital/temporoparietal region PT OT and ST [facility] per neurology recommendations Headache Improved, continue Fioricet, likely secondary to musculoskeletal origin, discussed with PT to do head and neck exercises as well as ordering an ice and heating pad Atrial fibrillation Worsening RVR, cardiology has modified regimen so that patient is now on p.o. Cardizem for rate control continue p.o. amiodarone Transient hypotension -Likely secondary to A. fib RVR, given 1 L normal saline bolus, improvement, monitor, holding home Coreg lisinopril and Norvasc Diabetes mellitus Accu-Cheks with sliding scale insulin coverage Diabetic diet Hyperlipidemia Continue lipitor DVT prophylaxis Will be starting Eliquis Discharge Planning Stable to be discharged home with home health once heart rate is stabilized. Gibson Doan MD Dec 21, 2017 15:47
[2017-12-21] MEDS: ATORVASTATIN 40 MG TAB PO SCH (21:42)
[2017-12-22] VITALS: BP 114/64; PULSE 71; PULSE 73; RESP 16; TEMP 98.1; O2SAT 96
[2017-12-22] MEDS: DILTIAZEM HCL 30 MG TAB PO SCH ×2 (00:20→05:41)
[2017-12-22] MEDS: CHLORHEXIDINE GLUCONATE 2 % 1 PACK (2 CLOTHS) TOP SCH (00:23)
[2017-12-22] MEDS: ACETAMIN 325 MG/BUTALBITAL 50 MG/CAFFEINE 40 MG TAB PO PRN (03:49)
[2017-12-22 04:00] VITALS: BP 141/82; PULSE 71; PULSE 94; RESP 18; TEMP 97.6; O2SAT 95
[2017-12-22 07:00] VITALS: PULSE 59
[2017-12-22 07:52] VITALS: BP 109/56; PULSE 55; RESP 16; TEMP 97.6; O2SAT 97
[2017-12-22 08:00] VITALS: PULSE 60
[2017-12-22] MEDS: INSULIN ASPART SUPPLEMENTAL SCALE SQ SCH (08:11)
[2017-12-22 09:00] VITALS: PULSE 79
[2017-12-22] MEDS ORDERED: DIGOXIN 0.25 MG TAB PO SCH (09:00)
[2017-12-22] MEDS ORDERED: DIGO0.25 PO (09:01)
[2017-12-22] MEDS ORDERED: APIX5TAB PO (09:01)
[2017-12-22] MEDS ORDERED: DILT31TA PO (09:01)
[2017-12-22] MEDS ORDERED: AMIO200T PO (09:01)
--- NOTE | 2017-12-22 09:08 | HHI.DS ---
Discharge Summary Admission Date Dec 17, 2017 at 07:33 Discharge Date: Dec 22, 2017 Admitting Diagnosis Ischemic stroke with expressive aphasia, afib with rvr, elevated tro (1) Ischemic stroke ICD Code: I63.9 - Cerebral infarction, unspecified Status: Acute (2) Atrial fibrillation with RVR ICD Code: I48.91 - Unspecified atrial fibrillation Diagnosis: Secondary Status: Acute Procedures None Brief History - From Admission HPI The patient is a 77 year old male who presents to the [facility] emergency department with a history of reportedly having a headache in the back of his head and neck that began on Sunday. The patient reports that this was associated with left shoulder pain. 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 He reports that he went to the emergency department in [place] and was admitted to the hospital. He reports that on Sunday he underwent a cardiac catheterization and no stents needed to be placed. The patient developed confusion in the hospital and was admitted overnight. They thought that this was related to sedation from the cardiac catheterization procedure according to his daughter at the bedside. He reports that he does take an aspirin daily. He denies taking any other blood thinners. He reports having a history of an irregular heartbeat, however he is unsure whether this is related to atrial fibrillation. Patient was discharged home on 12/16 from [facility]. He text in his daughter this morning that he was confused and patient was brought over to [facility] ER. He was complaining of significant headache at that time as well 10 out of 10 in intensity with some confusion and difficulty finding words which reportedly began on 07/17 following cardiac catheterization. He denies having any focal weakness. He denies having any vision changes. He denies having any known recent fevers, cough or congestion, shortness of breath, abdominal pain, vomiting, diarrhea, urinary symptoms, or other neurologic symptoms. Patient underwent head CT which showed ischemic infarct in the region of the left occipital lobe. He was accepted for admission by critical care medicine service. Neurology and cardiology were consulted as well and patient underwent an MRI MRA brain which showed a large infarct in the left occipital/temporal parietal region with cerebral edema. When I evaluated the patient in the ER he was laying in the ER stretcher drowsy but easily arousable and following commands though was disoriented and had difficulty with finding words. He could not tell me the year or month or date. He knew he lived in [place] however could not tell me where he was currently. He could name his daughter. History was obtained by reviewing records and discussion with patient as well as his daughter was at the bedside. [facility] Past Medical History Narrative Medical The patient's past medical history is significant for hypertension, hyperlipidemia, diabetes mellitus, history of an irregular heartbeat, coronary artery disease. Medical History: Unable to Obtain Cardiovascular Problems: Yes Past Surgical History Narrative Surgical The patient's past surgical history is significant for quadruple bypass, left knee replacement Social History Alcohol Use: Yes (OCC) Tobacco Use: No Substance Use: No Allergies-Medications (Allergen,Severity, Reaction): Coded Allergies: No Known Allergies (Unverified , 12/17/17) Reported Meds & Prescriptions Reported Meds & Active Scripts Active Active Prescriptions or Reported Medications Unobtainable Review of Systems Except as stated in HPI: all other systems reviewed are Neg General / Constitutional: No: Fever Eyes: No: Visual changes HENT: Positive: Headaches, Neck Pain, No: Neck Stiffness Cardiovascular: No: Chest Pain or Discomfort, Dyspnea on exertion Respiratory: No: Shortness of Breath Gastrointestinal: No: Nausea, Vomiting, Abdominal Pain Genitourinary: No: Dysuria Musculoskeletal: No: Pain Skin: No Rash Neurologic: Positive: Headache, Change in Mentation, No: Weakness, Focal Abnormalities, Slurred Speech, Sensory Disturbance Psychiatric: No: Depression Endocrine: No: Polydipsia Hematologic/Lymphatic: No: Easy Bruising CBC/BMP: 12/18/17 0310 12/18/17 0310 Significant Findings Laboratory Tests Test 12/22/17 05:00 Imaging Last Impressions Head CT 12/19/17 0600 Signed Impressions: Service Date/Time: Tuesday, December 19, 2017 05:03 - CONCLUSION: Stable infarcts left posterior temporal/occipital lobe. No midline shift. All Bueno MD Chest X-Ray 12/18/17 0000 Signed Impressions: Service Date/Time: Monday, December 18, 2017 04:29 - CONCLUSION: Stable chest. All Bueno MD Brain MRI 12/17/17 0642 Signed Impressions: Service Date/Time: Sunday, December 17, 2017 09:23 - CONCLUSION: 1. The abnormality on CT corresponds to a large area of acute to subacute infarction. 2. No evidence of underlying mass or hemorrhage. Guanakito Thomas MD Head Magnetic Resonance Angiography 12/17/17 0633 Signed Impressions: Service Date/Time: Sunday, December 17, 2017 09:23 - CONCLUSION: Occluded branches of left RELIGION DEPARTMENT CHAIR. Hypoplastic left A1. Mario Robertson MD Neck Magnetic Resonance Angiography 12/17/17 0000 Signed Impressions: Service Date/Time: Sunday, December 17, 2017 09:23 - CONCLUSION: No evidence of carotid stenosis Mario Robertson MD PE at Discharge GENERAL: Not in distress. SKIN: Warm and dry. HEAD: Normocephalic. EYES: No scleral icterus. No injection or drainage. NECK: Supple, trachea midline. No JVD or lymphadenopathy. CARDIOVASCULAR: Regular rate and rhythm without murmurs, gallops, or rubs. RESPIRATORY: Breath sounds equal bilaterally. No accessory muscle use. GASTROINTESTINAL: Abdomen soft, non-tender, nondistended. EXTREMITIES: No cyanosis, or edema. NEUROLOGICAL: Awake, alert, and oriented to place and person, mildly disoriented to date, thinks it is December 23, 2016. There is December 22, 2017. Remembers daughter's birthday, off by a month. No cranial nerve deficits, mild confusion, no tenderness of the occipital area. Muscle strength testing 5/5. Pt update on day of discharge Mild hypotension overnight, corrected by itself. Tachycardia improved, 9 sinus rhythm. No headache, still with mild neck pain. No chest pain or shortness of breath. Hospital Course This is a 77-year-old male who presented to the emergency department with mild dysarthria and confusion. Upon evaluation, the patient was found to have a large ischemic infarct involving the left occipital and temporal parietal region. Neurology was consulted. Workup was done, eliquis was started. Patient also had atrial fibrillation with RVR, cardiology was consulted. Patient was mildly hypotensive. Coreg and Norvasc were stopped including patient's lisinopril. Other than anticoagulation, amiodarone and digoxin were started. On the day of discharge, digoxin levels were within normal limits. Heart rate is controlled and in sinus rhythm. Blood pressure stable, patient was evaluated by physical therapy, patient may go home with home health care physical therapy. He will follow-up with cardiology and neurology as outpatient. Pt Condition on Discharge: Good Discharge Disposition: Disch w/ Home Health Serv Discharge Time: > 30 minutes Discharge Instructions DIET: Follow Instructions for: Heart Healthy Diet Speech Therapy-Diet Recommends: Regular Activities you can perform: Regular-No Restrictions Follow up Referrals: Cardiology @ [facility] Cardiology with Minor PCP Follow-up - 1 Week New Medications: Amiodarone (Amiodarone) 200 Mg Tab 200 MG PO DAILY for afib, #30 TAB Apixaban (Eliquis) 5 Mg Tab 5 MG PO BID for Stroke Prevention, #60 TAB Digoxin (Digoxin) 0.25 Mg Tab 0.25 MG PO DAILY for afib, #30 TAB Diltiazem (Cardizem) 30 Mg Tab 30 MG PO Q6HR for afib, #120 TAB Continued Medications: Aspirin (Aspirin) 81 Mg Chew 81 MG PO DAILY, TAB 0 Refills Metformin (Metformin) 500 Mg Tab 500 MG PO BIDPC for Blood Sugar Management, #60 TAB 0 Refills Pantoprazole (Pantoprazole) 40 Mg Tab 40 MG PO DAILY for Reflux, #30 TAB 0 Refills Rosuvastatin (Crestor) 40 Mg Tab 40 MG PO DAILY for Cholesterol Management, #30 TAB 0 Refills Discontinued Medications: Amlodipine (Norvasc) 5 Mg Tab 5 MG PO DAILY for Blood Pressure Management, #30 TAB 0 Refills Carvedilol (Carvedilol) 3.125 Mg Tab 3.125 MG PO BID, #60 TAB 0 Refills Lisinopril (Lisinopril) 40 Mg Tab 40 MG PO DAILY for Blood Pressure Management, #30 TAB 0 Refills Lyn Vidal MD Dec 22, 2017 09:08
[2017-12-22] MEDS: APIXABAN 5 MG TABLET PO SCH (09:34)
[2017-12-22] MEDS: AMIODARONE 200 MG TAB PO SCH (09:34)
[2017-12-22] MEDS: DOCUSATE SODIUM 50 MG/SENNA 8.6 MG TAB PO SCH (09:35)
[2017-12-22] MEDS: FAMOTIDINE 20 MG TAB PO SCH (09:35)
[2017-12-22] MEDS: ASPIRIN 81 MG CHEW TAB CHEW SCH (09:35)
[2017-12-22] MEDS: SODIUM CHLORIDE 0.9% FLUSH 10 ML FLUSH IV FLUSH SCH (09:35)
--- NOTE | 2018-01-02 15:06 | PQ ---
Physician Query Response Document PATIENT: YURIDIA SAWYER : 1940 ADMIT DATE: 12/17/2017 7:33 AM DISCH DATE: 12/22/2017 10:45 AM RESPONDING PROVIDER #: yung QUERY TEXT: Conflicting Documentation Clarification A single mention or documentation of multiple diagnoses for the same clinical presentation appears in the record. Please clarify the diagnosis/diagnoses. 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 Please also document if the condition is: -- Confirmed and current -- Confirmed, treated and resolved -- Ruled out -- Other, please specify If you have any additional questions/comments and/or concerns, please do not hesitate to reach out to the CDI/Coding Hotline, Ext. [phone]. The patient's Clinical Indicators include: Consultation report by Dr. Campbell of 12/18/17, under description of CVA: Given size since hemorrhagic c onversion, anticoagulation is contraindicated at this time. H None of the radiologic studies of the brain show hemorrhage. Discharge Summary does NOT document hemorrhage/hemorrhagic conversion of CVA. Query created by: Taryn Parmar on 01/01/2018 10:39 AM RESPONSE TEXT: Please ask neuro to comment on that diagnosis. Thank you Electronically signed by: Alvaro Campbell 01/02/2018 3:02 PM
== END 2017-12-22 10:45 | disposition home health service (06) | DRG 64 ==
LOC: NEPC 04:24 → NEDA 07:33 → N03A 13:44 → HCPC 12-18 18:05
PROVIDERS: ADMIT Hospitalist; ATTEND Hospitalist
DX: I63.532 Cerebral infarction due to unspecified occlusion or stenosis of left posterior cerebral artery (principal); I21.4 Non-ST elevation (NSTEMI) myocardial infarction; G93.40 Encephalopathy, unspecified; I48.91 Unspecified atrial fibrillation; E11.9 Type 2 diabetes mellitus without complications; G81.90 Hemiplegia, unspecified affecting unspecified side; I10 Essential (primary) hypertension; R47.01 Aphasia; Z79.84 Long term (current) use of oral hypoglycemic drugs; E78.5 Hyperlipidemia, unspecified; I25.10 Atherosclerotic heart disease of native coronary artery without angina pectoris; Z95.1 Presence of aortocoronary bypass graft; Z79.82 Long term (current) use of aspirin; Z96.652 Presence of left artificial knee joint
CPT/HCPCS: 70450; 70544; 70548; 70553; 71045; 80053; 80061; 80162; 80307; 81001; 82140; 82550; 82552; 82948; 83036; 83690; 83735; 83880; 84100; 84484; 85025; 85610; 85730; 93005; 93306; 94640; 96365; 96375; A9579; J0171; J0282; J1160; J1630; J1815; J2060; J2405; J3010; J3475; J7030; J7050